=== PATIENT | female | born 1955 | race Caucasian/White ===

== ENCOUNTER → 2016-08-23 | Outpatient (CLI) | payer OTHER ==
--- NOTE | 2016-08-28 09:23 | MR ---
EXAMINATION TYPE: MR knee LT wo con DATE OF EXAM: 08/23/2016 3:34 PM COMPARISON: NONE HISTORY: Twisted Left Knee X3 Months ago TECHNIQUE: Multiplanar, multisequence imaging of the left knee is performed. FINDINGS: MEDIAL MENISCUS: Anterior and posterior horns are intact without tear. LATERAL MENISCUS: Anterior and posterior horns are intact without tear. CRUCIATE LIGAMENTS: The anterior and posterior cruciate ligaments are intact and unremarkable. COLLATERAL LIGAMENTS: The medial collateral ligament and lateral collateral ligament complex are intact and unremarkable. EXTENSOR MECHANISM: Visualized quadriceps and patellar tendons are intact. EFFUSION: No evidence for joint effusion. POPLITEAL CYST: No popliteal/mancini cyst. TRICOMPARTMENT SPACES: The tricompartment joint spaces appear within normal limits. CARTILAGE: The articular cartilage is maintained without abnormal signal or full-thickness defect. BONE MARROW SIGNAL: No focal abnormal marrow signal is appreciated: OTHER: No additional significant abnormality is appreciated. IMPRESSION: 1.
== END | disposition home or self-care (01) ==
LOC: RADMRIMAIN 15:28
PROVIDERS: ATTEND Orthopaedic Surgery
DX: S83.242A Other tear of medial meniscus, current injury, left knee, initial encounter (principal); M25.462 Effusion, left knee

== ENCOUNTER → 2016-10-04 | Outpatient (CLI) | payer OTHER ==
[2016-10-04 13:24] LABS: EKG EKG PERFORMED
[2016-10-04 13:53] LABS: Basophils # (A) 0.1 k/uL (0-0.2); Basophils % (A) 1 %; CH 30.2; CHCM 32.3; Eosinophils # (A) 0.2 k/uL (0-0.7); Eosinophils % (A) 2 %; HCT 43.7 % (34.0-46.0); HGB 14.2 gm/dL (11.4-16.0); Luc % (Auto) 3; Lymphocytes # (A) 2.7 k/uL (1.0-4.8); Lymphocytes % (A) 38 %; MCH 30.7 pg (25.0-35.0); MCHC 32.6 g/dL (31.0-37.0); MCV 94.1 fL (80.0-100.0); Mean Platelet Volume 7.1; Monocytes # (A) 0.4 k/uL (0-1.0); Monocytes % (A) 5 %; Neutrophils # (A) 3.7 k/uL (1.3-7.7); Neutrophils % (A) 51 %; RBC 4.64 m/uL (3.80-5.40); RDW 13.9 % (11.5-15.5); WBC 7.3 k/uL (3.8-10.6)
[2016-10-04 14:08] LABS: Anion Gap 13 mmol/L; Carbon Dioxide 28 mmol/L (22-30); Chloride 101 mmol/L (98-107); Potassium 4.1 mmol/L (3.5-5.1); Sodium 142 mmol/L (137-145)
== END | disposition home or self-care (01) ==
LOC: LABPAT 13:00
PROVIDERS: ATTEND Orthopaedic Surgery
DX: Z01.810 Encounter for preprocedural cardiovascular examination (principal); M23.92 Unspecified internal derangement of left knee
CPT/HCPCS: 80051; 85025; 93005

== ENCOUNTER 2016-10-09 08:42 | Day surgery (SDC) | payer OTHER ==
[2016-10-01 18:02] VITALS: BMI 34.0
--- NOTE | 2016-10-09 08:04 | P.HPOR ---
History of Present Illness H&P Date: 10/09/16 Chief Complaint: Left knee pain 61-year-old patient seen with progressive left knee pain. After having treatment options discussed, she elected to proceed with left knee arthroscopy. Past Medical History Past Medical History: Fibromyalgia, Hyperlipidemia, Osteoarthritis (OA), Thyroid Disorder Additional Past Medical History / Comment(s): EDEMA, CHRONIC BACK PAIN History of Any Multi-Drug Resistant Organisms: None Reported Past Surgical History: Bowel Resection Additional Past Surgical History / Comment(s): RADIO FREQUENCY FOR BACK PAIN Past Anesthesia/Blood Transfusion Reactions: No Reported Reaction Smoking Status: Never smoker - Past Family History Mother Family Medical History: Cancer Additional Family Medical History / Comment(s): LEUKEMIA Medications and Allergies Home Medications Medication Instructions Recorded Confirmed Type Atorvastatin [Lipitor] 10 mg PO DAILY 10/01/16 10/01/16 History Cyclobenzaprine [Flexeril] 10 mg PO DAILY PRN 10/01/16 10/01/16 History DULoxetine HCL [Cymbalta] 60 mg PO DAILY 10/01/16 10/01/16 History Hydrochlorothiazide 25 mg PO QAM 10/01/16 10/01/16 History Levothyroxine Sodium [Synthroid] 100 mcg PO DAILY 10/01/16 10/01/16 History Lisdexamfetamine Dimesylate 70 mg PO QAM 10/01/16 10/01/16 History [Vyvanse] Tramadol Er 1 tab PO DIRECTED PRN 10/01/16 History buPROPion XL [Wellbutrin Xl] 300 mg PO DAILY 10/01/16 10/01/16 History Allergies Allergy/AdvReac Type Severity Reaction Status Date / Time No Known Allergies Allergy Verified 10/01/16 17:43 Physical Examination Osteopathic Statement: *. No significant issues noted on an osteopathic structural exam other than those noted in the History and Physical/Consult. - Knee left Tenderness with palpation: medial Pain: with flexion ROM: extension: normal ROM: flexion: 120 degrees Strength: extension: 4/5 Strength: flexion: 5/5 Meniscal tests: medial meniscal tests: positive, lateral meniscal tests: negative, medial joint line pain: positive, lateral joint line pain: positive Results X-ray left knee: Mild medial and moderate lateral compartment osteoarthritis MRI left knee: Medial meniscal tear Assessment and Plan Plan: Assessment: Internal derangement left knee with medial meniscal tear Plan: Arthroscopy left knee with partial meniscectomy and debridement Time with Patient: Less than 30
[~2016-10-09 08:42] MED LIST: DEXAMETHASONE SOD PHOSPHATE 10 MG/ML 1 ML VIAL IV ONE; HYDROmorphone 1 MG/ML 1 ML SYRINGE IVP PRN; LACTATED RINGERS 1,000 ML IV SCH; LIDOCAINE 1% 20 ML VIAL (10MG/ML) FOR IV START INTRADERMA PRN; ONDANSETRON 4 MG/2 ML VIAL IVP ONE; SCOPOLAMINE 1.5MG/72HR PATCH TRANSDERM ONE
[2016-10-09] MEDS: ceFAZolin 2 GM in SODIUM CHLORIDE 0.9% 100 ML IVPB ONE ×2 (10:28→10:40)
[2016-10-09] MEDS ORDERED: GLYCOPYRROLATE 0.2 MG/ML 2 ML VIAL ONE (10:28)
[2016-10-09] MEDS ORDERED: MIDAZOLAM 2 MG/2 ML VIAL ONE (10:28)
[2016-10-09] MEDS ORDERED: LIDOCAINE 1% INJ 10MG/ML (20 ML MDV) ONE (10:28)
[2016-10-09] MEDS ORDERED: HYDROmorphone (PF) 1 MG/ML ONE (10:28)
[2016-10-09] MEDS ORDERED: fentaNYL (PF) 50 MCG/ML 2 ML AMP ONE (10:28)
[2016-10-09] MEDS ORDERED: KETAMINE 10 MG/ML 20 ML VIAL ONE (10:28)
[2016-10-09] MEDS ORDERED: PROPOFOL 10 MG/ML 20 ML VIAL IV ONE (10:28)
[2016-10-09] MEDS ORDERED: BUPIVACAINE (PF) 0.25% 30 ML VIAL SQ ONE ×2 (10:52→11:17)
[2016-10-09 11:34] VITALS: TEMP 97.4
[2016-10-09] MEDS ORDERED: KETOROLAC 30 MG/ML 1 ML VIAL IVP ONE (11:35)
--- NOTE | 2016-10-09 11:35 | P.OP ---
Date of Procedure: 10/09/16 Preoperative Diagnosis: Internal derangement left knee Postoperative Diagnosis: 1. Tear medial and lateral meniscus left knee 2. Grade 3 chondromalacia medial femoral condyle left knee 3. Grade 2/3 chondromalacia lateral femoral condyle left knee 4. Grade 3/4 chondromalacia patellofemoral joint left knee 5. Reactive synovitis medial, lateral and suprapatellar compartments left knee Procedure(s) Performed: 1. Arthroscopic partial medial and lateral meniscectomy left knee 2. Arthroscopic chondroplasty medial femoral condyle left knee 3. Arthroscopic chondroplasty lateral femoral condyle left knee 4. Arthroscopic chondroplasty patellofemoral joint left knee 5. Arthroscopic partial synovectomy medial, lateral and super patellar compartments left knee Implants: Anesthesia: JSA, local Surgeon: Bharathi Child Estimated Blood Loss (ml): 20 Pathology: none sent Condition: stable Disposition: PACU Indications for Procedure: 61-year-old patient seen with progressive left knee pain. After having treatment options discussed, she elected to proceed with arthroscopy. Operative Findings: See description of procedure Description of Procedure: Patient was taken to the operative suite. Patient underwent a general anesthetic by the department of anesthesia. Patient was given preoperative antibiotics. The left lower extremity was placed in a well-padded arthroscopic leg virgen. The left leg was prepped and draped in the normal sterile orthopedic fashion. A lateral parapatellar and suprapatellar incision was made. Trochars were inserted. Arthroscopy was initiated. Suprapatellar pouch revealed thick reactive synovitis. The patellofemoral joint appeared to articulate congruently. There were grade 3, she changes of the patella and grade 4 chondramalacia changes of the femoral sulcus with areas of bone exposure. The scope was guided into the medial gutter. No loose bodies or plica was identified. The scope was then guided into the medial compartment. A medial parapatellar incision was made. Trocar inserted followed by probe. There was a complex tear involving the posterior horn medial meniscus extending just into the midbody. There were grade 3 chondromalacia changes of the medial femoral condyle with some osteochondral tears present and grade 2 chondromalacia changes of the tibial plateau. There was reactive synovitis anteriorly. I performed a partial medial meniscectomy getting down to stable tissue. I performed a chondroplasty medial femoral condyle down to stable tissue and partial synovectomy. No loose bodies. Scope and probe were then guided into the intercondylar notch. Cruciates were identified, probed and found to be stable. The scope and probe were then guided into lateral compartment. There was a radial tear in the midbody posterior horn of the lateral meniscus. There were grade 3 chondromalacia changes lateral femoral condyle with osteochondral tears. There was reactive synovitis anteriorly. I performed a partial lateral meniscectomy down to stable tissue. I performed a chondroplasty lateral femoral condyle down to stable tissue. A partial synovectomy was performed. The residual meniscus was stable.. The scope was in guided back into the suprapatellar compartment. I introduced a motorized shaver into the super patellar compartment. I performed a chondroplasty the patella and femoral sulcus getting down to stable osteochondral tissue. We again noted an area of grade 4 chondromalacia in the central femoral sulcus but stable peripheral osteochondral tissue. I debrided some piecemeal fragments of meniscus and performed a partial synovectomy. The shaver was removed. Instruments were now removed from the joint. The joint was infiltrated with .25 % Marcaine. Steri-Strips were applied to the portal sites. Sterile dressings were applied. The patient was placed into a SOSA hose. No tourniquet was utilized. The patient was awakened, transferred to a bed and taken to recovery stable satisfactory condition.
[2016-10-09 13:44] VITALS: RESP 16
[2016-10-09] MEDS ORDERED: HYDROcodone/APAP 5-325MG 1 EACH TAB PO ONE (13:49)
[2016-10-09 14:07] VITALS: BP 119/76; PULSE 91
== END 2016-10-09 14:19 | disposition home or self-care (01) ==
LOC: OR 08:42
PROVIDERS: ATTEND Orthopaedic Surgery
DX: M23.322 Other meniscus derangements, posterior horn of medial meniscus, left knee (principal); M23.352 Other meniscus derangements, posterior horn of lateral meniscus, left knee; M94.262 Chondromalacia, left knee; M65.862 Other synovitis and tenosynovitis, left lower leg; M17.12 Unilateral primary osteoarthritis, left knee; R94.31 Abnormal electrocardiogram [ECG] [EKG]; M79.7 Fibromyalgia; E78.5 Hyperlipidemia, unspecified; E07.9 Disorder of thyroid, unspecified; M54.9 Dorsalgia, unspecified; G89.29 Other chronic pain; I10 Essential (primary) hypertension; Z79.899 Other long term (current) drug therapy
CPT/HCPCS: 29880; J2250; J1100; J0690; J2405; J2001; J3010; J1885; J1170; J2704

== ENCOUNTER → 2020-02-09 | Outpatient (CLI) | payer BC ==
[2020-02-09 10:49] LABS: Basophils % (A) 1 %; Eosinophils # (A) 0.2 k/uL (0-0.7); Eosinophils % (A) 3 %; HCT 40.4 % (34.0-46.0); Lymphocytes # (A) 2.1 k/uL (1.0-4.8); Lymphocytes % (A) 28 %; MCHC 32.1 g/dL (31.0-37.0); MCV 90.3 fL (80.0-100.0); Mean Platelet Volume 6.6; Monocytes # (A) 0.4 k/uL (0-1.0); Monocytes % (A) 5 %; Neutrophils # (A) 4.6 k/uL (1.3-7.7); Neutrophils % (A) 63 %; Platelet Count 281 k/uL (150-450); RBC 4.47 m/uL (3.80-5.40); RDW 13.8 % (11.5-15.5); WBC 7.4 k/uL (3.8-10.6)
[2020-02-09 10:52] LABS: Appearance,Urine Clear (Clear); Bilirubin,Urine Negative (Negative); Blood,Urine Negative (Negative); Color,Urine Yellow; Glucose,Urine (UA) Negative (Negative); Ketones,Urine Negative (Negative); Leukocyte Esterase,Urine Trace (Negative); Mucus,Urine Rare /hpf; Nitrite,Urine Negative (Negative); PH, Urine 7.5 (5.0-8.0); Protein,Urine Negative (Negative); Specific Gravity,Urine 1.018 (1.001-1.035); Squamous Epithelial Cell,Urine <1 /hpf (0-4); Urobilinogen,Urine <2.0 mg/dL (<2.0); WBC,Urine <1 /hpf (0-5)
[2020-02-09 10:57] LABS: INR 0.9 (<1.2); Prothrombin Time 9.8 sec (9.0-12.0)
[2020-02-09 11:11] LABS: ALT 22 U/L (4-34); AST 23 U/L (14-36); African American GFR (CKD) >90 (>60 ml/min/1.73 sqM); Albumin 4.4 g/dL (3.5-5.0); Alkaline Phosphatase 95 U/L (38-126); Anion Gap 4 mmol/L; Blood Urea Nitrogen 22 mg/dL (7-17); Calcium 9.1 mg/dL (8.4-10.2); Carbon Dioxide 30 mmol/L (22-30); Chloride 103 mmol/L (98-107); Glucose 112 mg/dL (74-99); Non-African American GFR(CKD) 81 (>60 ml/min/1.73 sqM); Sodium 137 mmol/L (137-145); Total Bilirubin 0.3 mg/dL (0.2-1.3)
== END | disposition home or self-care (01) ==
LOC: LABPAT 10:06
PROVIDERS: ATTEND Orthopaedic Surgery
DX: Z01.818 Encounter for other preprocedural examination (principal); Z01.812 Encounter for preprocedural laboratory examination
CPT/HCPCS: 80053; 81001; 85025; 85610; 87070

== ENCOUNTER 2020-02-28 12:07 | Day surgery (SDC) | payer BC, OTHER ==
[2020-02-16 14:41] VITALS: BMI 35.1
--- NOTE | 2020-02-27 13:03 | HP ---
HISTORY AND PHYSICAL DATE OF SURGERY: 02/28/2020. HISTORY OF PRESENT ILLNESS: Bonnie Mcbride is a 64-year-old patient who was seen with symptomatic left knee osteoarthritis. We discussed options for treatment. She elected to proceed with left total knee arthroplasty. Consent regarding the procedure was obtained. Medical clearance was provided by Dr. Omar Rivera. PAST MEDICAL HISTORY: Hypertension, hypothyroidism, depression. PAST SURGICAL HISTORY: Colon resection, knee arthroscopy. DAILY MEDICATIONS: Atorvastatin, levothyroxine, trazodone, Vyvanase, Voltaren gel. ALLERGIES: NONE REPORTED. SOCIAL HISTORY: She denies current tobacco use. PHYSICAL EXAMINATION: Evaluation of the left knee: Range of motion is -2/3-120. Moderate effusion. Tenderness medial joint line. Crepitus medial patellofemoral compartments on range of motion. Pain with patellofemoral compression. Ligaments stable. Hip rotation without pain. Distal neurovascular exam is intact. RADIOGRAPHS: Radiographs of the left knee revealed severe osteoarthritic changes. IMPRESSION: 1. Left knee osteoarthritis. 2. Hypertension. 3. Hypothyroidism. PLAN: Left total knee arthroplasty. MMODL / IJN: [id number] /
[~2020-02-28 12:07] MED LIST changes: +ACETAMINOPHEN TAB 500 MG TAB PO PRN; -DEXAMETHASONE SOD PHOSPHATE 10 MG/ML 1 ML VIAL IV ONE; +DEXAMETHASONE SOD PHOSPHATE 4 MG/ML 1 ML VIAL IV ONE; +HYDROmorphone 0.5 MG/0.5 ML SYRINGE IVP PRN; -HYDROmorphone 1 MG/ML 1 ML SYRINGE IVP PRN; -LACTATED RINGERS 1,000 ML IV SCH; +LIDOCAINE 1% (10MG/ML) FOR IV START INTRADERMA PRN; -LIDOCAINE 1% 20 ML VIAL (10MG/ML) FOR IV START INTRADERMA PRN; +MELOXICAM 7.5 MG TAB PO PRN; +MIDAZOLAM 2 MG/2 ML VIAL IV PRN; +ROPIVACAINE/EPI/CLONIDINE/KET 50 ML SYRINGE MISCELLANE PRN; -SCOPOLAMINE 1.5MG/72HR PATCH TRANSDERM ONE; +TRANEXAMIC ACID 1,000 MG in SODIUM CHLORIDE 0.9% 100 ML IVPB PRN; +fentaNYL (PF) 50 MCG/ML 2 ML AMP IVP PRN
[2020-02-28] MEDS ORDERED: ONDANSETRON 4 MG/2 ML VIAL ONE (12:20)
[2020-02-28] MEDS: LACTATED RINGERS 1,000 ML IV SCH ×3 (12:49→18:28)
[2020-02-28] MEDS ORDERED: DEXAMETHASONE SOD PHOSPHATE 4 MG/ML 1 ML VIAL IV ONE (12:49)
[2020-02-28] MEDS ORDERED: ONDANSETRON 4 MG/2 ML VIAL IVP ONE (12:50)
[2020-02-28] MEDS ORDERED: MIDAZOLAM 2 MG/2 ML VIAL IV ONE (12:57)
[2020-02-28] MEDS ORDERED: fentaNYL (PF) 50 MCG/ML 2 ML AMP IV ONE (12:57)
--- NOTE | 2020-02-28 13:19 | P.ANPRN ---
Procedure Note - Anesthesia - Nerve Block Performed Left Adductor Canal Time Out Performed: Yes (12:57) Date of Procedure: 02/28/20 Procedure Start Time: :57 Procedure Stop Time: 13:14 Location of Patient: PreOp Indication: Acute Post-Operative Pain, Requested by Surgeon (Dr Child) Sedation Type: Sedate with meaningful contact maintained Preparation: Sterile Prep, Sterile Dressing Position: Supine Catheter: Indwelling Needle Types: Pajunk Needle Gauge: 21 Ultrasound used to visualize needle placement: Yes Ultrasound used to observe medication spread: Yes Injectate: 0.5% Ropivacaine (see comment for volume) (20cc) Blood Aspirated: No Pain Paresthesia on Injection Noted: No Resistance on Injection: Normal Image Stored and Saved: Yes Events: Uneventful and Well Tolerated
[2020-02-28] MEDS ORDERED: ROPIVACAINE 0.2%-NS ON-Q PUMP 1,090 MG, EMPTY PAIN BALL 1 EACH MISCELLANE PRN (13:30)
[2020-02-28] MEDS ORDERED: MIDAZOLAM 2 MG/2 ML VIAL ONE (13:48)
[2020-02-28] MEDS ORDERED: PROPOFOL 10 MG/ML 20 ML VIAL IV ONE (13:48)
[2020-02-28] MEDS ORDERED: TRANEXAMIC ACID 1,000 MG/10 ML VIAL ONE (13:48)
[2020-02-28] MEDS ORDERED: SODIUM CHLORIDE 0.9% 100 ML BAG ONE (13:48)
[2020-02-28] MEDS ORDERED: diphenhydrAMINE 50 MG/ML 1 ML VIAL ONE (13:48)
[2020-02-28] MEDS ORDERED: LACTATED RINGERS 1,000 ML IV ONE (15:46)
[2020-02-28] MEDS ORDERED: HYDROcodone/APAP 5-325MG 1 EACH TAB PO PRN (15:55)
[2020-02-28] MEDS ORDERED: ONDANSETRON 4 MG/2 ML VIAL IVP PRN (15:55)
[2020-02-28] MEDS ORDERED: HYDROmorphone 0.2 MG/1 ML SYRINGE IVP PRN (15:55)
[2020-02-28] MEDS ORDERED: NALOXONE 0.4 MG/ML 1 ML VIAL IV PRN (15:55)
[2020-02-28] MEDS ORDERED: HYDROmorphone 0.5 MG/0.5 ML SYRINGE IVP PRN (15:55)
[2020-02-28] MEDS ORDERED: HYDROmorphone 1 MG/ML 1 ML SYRINGE IVP PRN (15:55)
--- NOTE | 2020-02-28 15:55 | P.OP ---
Date of Procedure: 02/28/20 Preoperative Diagnosis: Left knee osteoarthritis Postoperative Diagnosis: Left knee osteoarthritis Procedure(s) Performed: Left total knee arthroplasty Implants: 1. Depuy attune size 6 narrow left cruciate retaining cemented femur 2. Depuy attune size 6 fixed bearing cemented tibial baseplate 3. Depuy attune size 6 fixed bearing cruciate retaining 8 mm polyethylene tibial insert 4. Depuy attune 38 mm all polyethylene cemented patella Anesthesia: regional (Adductor canal catheter), local, spinal Surgeon: Bharathi Child Web Consultant #1: Sergio Corral Estimated Blood Loss (ml): 55 Pathology: other (Bone) Condition: stable Disposition: PACU Indications for Procedure: 64-year-old patient seen with symptomatic left knee osteoarthritis. After treatment options were discussed, she elected to proceed with total knee a rthroplasty. Operative Findings: Description of procedure Description of Procedure: Patient was taken to the operative suite after having an adductor canal catheter placed by the department of anesthesia. Patient underwent a spinal anesthetic by the department of anesthesia. Patient was given preoperative IV intake antibiotics and TXA. A well-padded tourniquet was placed about the left lower extremity. The lower extremity was then prepped and draped in the normal sterile orthopedic fashion. The extremity was elevated, a tourniquet was in sufflated to 300. A standard anterior incision was made sharply through skin. Dissection was taken down through the subcutaneous soft tissues down to the extensor mechanism. A medial arthrotomy was performed, patella was everted and knee was flexed. There was advanced osteoarthritis noted. I introduced my distal intramedullary femoral drill. I then introduced the distal femoral cutting jig. Colin DE LA CRUZ secured the cutting jig with 2 pins. I held retractors in position while Colin DE LA CRUZ performed the distal femoral resection through the guide area we now removed her distal femoral cutting guide. We now placed our 4-in-1 femoral cutting block and positioned and it was secured with 2 pins by Colin DE LA CRUZ while I held the block in position. The distal femoral finishing was now completed. A proximal tibial cutting guide was positioned. I held the guide in the appropriate position with both hands well Colin DE LA CRUZ inserted stabilizing pins into the guide. Proximal tibial cut was made. We now placed a trial femoral component into position, along with an appropriate size tibial tray and insert. We now took the knee through range of motion and had full extension good flexion and good overall soft tissue balance noted. The patella was everted and stabilized with 2 towel clips held by Colin DE LA CRUZ while I performed a flush with patellar quad tendon utilizing a fresh sawblade. We templated the patella, appropriate drill holes were made. An appropriate trial patella was positioned, knee was taken through full range of motion with the patella tracking very nicely. The trial patella was removed. Drill holes were made through the femoral component. All trial components were removed after marking off the appropriate rotation of the tibia. Retractors were now positioned along the proximal tibia. An appropriate keel punch was made with the appropriate size tibial guide by myself on Colin DE LA CRUZ assisted by holding retractors. At this point appropriate size implants were chosen and opened. The joint was irrigated copiously with pulse lavage mechanical irrigation. The posterior capsule was infiltrated with local analgesic. The wound was irrigated with pulse lavage mechanical irrigation. We mixed antibiotic methylmethacrylate. We placed the knee into flexion. We placed multiple retractors assisted by Colin DE LA CRUZ to expose the proximal tibia. Once the methyl methacrylate was ready, the tibial component was cemented into place removing any excess methylmethacrylate form by both myself and Colin DE LA CRUZ. The femoral component was cemented into place removing the removing any excess methylmethacrylate performed by both myself and Colin DE LA CRUZ. We then inserted the appropriate size polyethylene tibial insert. We made sure that it was locked into position. We took the knee into full extension, and then back in a flexion making sure we had removed any excess methylmethacrylate. The patellar component was then cemented down and secured with clamp. Excess methylmethacrylate removed. We kept the knee in full extension, patellar clamp in position until methylmethacrylate had hardened. Once it had hardened the patellar clamp was removed. The knee was taken through full range of motion. The patella tracked nicely. There was good soft tissue balancing. The tourniquet was now released. Additional hemostasis was achieved via electrocautery. A second gram of TXA was given. The wound again was irrigated with pulse lavage mechanical irrigation. The superficial soft tissues were infiltrated local analgesic. The extensor mechanism was repaired with Vicryl. We checked the repair with range of motion and it was stable. The subcutaneous soft tissues were repaired with Vicryl in layers. The skin was approximated with pernio/Dermabond. Sterile dressings were applied followed by loose web roll and Adilson bandage. The patient was transferred to a bed, and taken to recovery in stable and satisfactory condition. Colin DE LA CRUZ assisted with this complex procedure.
--- NOTE | 2020-02-28 16:32 | XR ---
EXAMINATION TYPE: XR knee limited LT DATE OF EXAM: 02/28/2020 CLINICAL HISTORY: Left knee pain and arthritis status post total knee replacement. TECHNIQUE: Portable AP and crosstable lateral views of the left knee are obtained immediately postop eratively. COMPARISON: Outside left knee x-rays January 18, 2020 FINDINGS: Metallic hardware from total left knee arthroplasty is seen and appears satisfactory in al ignment and position. There is evidence of recent surgery with diffuse subcutaneous gas and soft tis edmundo swelling and overlying vertical skin kay noted. IMPRESSION: METALLIC HARDWARE FROM TOTAL LEFT KNEE ARTHROPLASTY IS SATISFACTORY IN ALIGNMENT.
[2020-02-28] MEDS ORDERED: HYDROmorphone 0.5 MG/0.5 ML SYRINGE IVP ONE ×2 (16:35→16:45)
[2020-02-28] MEDS: ENOXAPARIN 30 MG/0.3 ML SYRINGE SQ SCH (20:18)
[2020-02-28] MEDS ORDERED: SENNOSIDES-DOCUSATE SODIUM 1 EACH TAB PO SCH (21:00)
[2020-02-28] MEDS: HYDROcodone/APAP 7.5-325MG 1 EACH TAB PO PRN (21:06)
[2020-02-29] MEDS: LACTATED RINGERS 1,000 ML IV SCH ×2 (01:05→08:37)
[2020-02-29 03:37] VITALS: RESP 18
[2020-02-29] MEDS: HYDROcodone/APAP 7.5-325MG 1 EACH TAB PO PRN ×2 (03:57→09:07)
[2020-02-29] MEDS ORDERED: LORazepam 1 MG TAB PO PRN (05:25)
[2020-02-29] MEDS ORDERED: LEVOTHYROXINE 100 MCG TAB PO SCH (06:30)
[2020-02-29 07:03] LABS: Basophils % (A) 0 %; Eosinophils % (A) 0 %; HCT 34.1 % (34.0-46.0); HGB 11.3 gm/dL (11.4-16.0); Lymphocytes # (A) 1.5 k/uL (1.0-4.8); Lymphocytes % (A) 16 %; MCH 29.9 pg (25.0-35.0); MCHC 33.1 g/dL (31.0-37.0); MCV 90.3 fL (80.0-100.0); Mean Platelet Volume 6.6; Monocytes # (A) 0.5 k/uL (0-1.0); Monocytes % (A) 6 %; Neutrophils # (A) 7.4 k/uL (1.3-7.7); Neutrophils % (A) 77 %; Platelet Count 207 k/uL (150-450); RBC 3.77 m/uL (3.80-5.40); WBC 9.6 k/uL (3.8-10.6)
[2020-02-29 07:35] VITALS: BP 105/69; PULSE 89; TEMP 98.2
--- NOTE | 2020-02-29 07:57 | P.CONS ---
History of Present Illness - Reason for Consult Consult date: 02/28/20 Medical management Requesting physician: Bharathi Child - Chief Complaint Post left total knee arthroplasty - History of Present Illness 64-year-old female one of my office patient with multiple medical problem known to have history of hypertension, hyper lipidemia, chronic history of fibromyalgia, chronic pain syndrome along with severe bipolar disorders and ADHD who had suffered from severe arthritis of the left knee for the last 4 years with failure to conservative management has been seen orthopedic and try for the last year decided for left total knee arthroplasty which was done successfully on 02/28/2020 patient was admitted to the hospital afterward has been medically stable hemodynamically stable and pain is under control. Review of Systems CONSTITUTIONAL: Well-developed no acute respiratory distress. Mildly overweight EYES: No icterus sclerae, no conjunctivitis. EARS, NOSE, MOUTH, THROAT, and FACE: No sore throat, lymphadenopathy, carotid bruits or deformity. RESPIRATORY: No SOB cough or wheezes. CARDIOVASCULAR: No CP, Palpitation, PND, Orthopnea, or angina. GASTROINTESTINAL: No Abd pain, Nausea or vomiting, no Diarrhea or constipation, No GI Bleed, no distention or masses. GENITOURINARY: Negative for Hematuria or UTI, no kidney stones. INTEGUMENT/BREAST: Negative for any muscular injury with mild osteoarthritis.. Slight discomfort on the left knee area HEMATOLOGIC/LYMPHATIC: Negative for bleed or purpura. MUSCULOSKELTAL: Negative for Myalgia or arthralgia. NEURLOGICAL: No LOC, Sz or syncope, blurred vision dizziness or abnormality.. BEHAVIORAL/PSYCH: Negative. ENDOCRINE: Negative. Social history: Patient does not smoke, drinks alcohol socially, she is and lives with her , used to work in management and healthcare. Does not use any CPAP or BiPAP no updraft treatment. Family history: Her mother from CLL in her late 80, her father from chronic anemia most likely colon cancer in his late 80, patient has brother who is living and well with history of hypertension, patient does not have any children. Past Medical History Past Medical History: Fibromyalgia, Hyperlipidemia, Osteoarthritis (OA), Thyroid Disorder Additional Past Medical History / Comment(s): EDEMA, CHRONIC PAIN. History of Any Multi-Drug Resistant Organisms: None Reported Past Surgical History: Bowel Resection Additional Past Surgical History / Comment(s): RADIO FREQUENCY FOR BACK PAIN, Total Left Knee february 2019. Past Anesthesia/Blood Transfusion Reactions: No Reported Reaction Past Psychological History: ADD/ADHD, Anxiety, Depression Smoking Status: Never smoker Past Alcohol Use History: Occasional Past Drug Use History: None Reported - Past Family History Mother Family Medical History: Cancer Additional Family Medical History / Comment(s): LEUKEMIA. Medications and Allergies Home Medications Medication Instructions Recorded Confirmed Type Atorvastatin [Lipitor] 10 mg PO DAILY 10/01/16 02/28/20 History Cyclobenzaprine [Flexeril] 10 mg PO DAILY PRN 10/01/16 02/28/20 History DULoxetine HCL [Cymbalta] 60 mg PO HS 10/01/16 02/28/20 History Levothyroxine Sodium [Synthroid] 100 mcg PO QAM 10/01/16 02/28/20 History Lisdexamfetamine Dimesylate 70 mg PO QAM 10/01/16 02/28/20 History [Vyvanse] hydroCHLOROthiazide 25 mg PO QAM 10/01/16 02/28/20 History LORazepam [Ativan] 1 mg PO QID PRN 02/16/20 02/28/20 History Perphenazine [Trilafon] 12 mg PO HS 02/16/20 02/28/20 History Triamterene/Hydrochlorothiazid 1 each PO QAM 02/16/20 02/28/20 History [Triamterene-Hctz 37.5-25 mg Tb] traZODone HCL 600 mg PO HS 02/16/20 02/28/20 History Allergies Allergy/AdvReac Type Severity Reaction Status Date / Time No Known Allergies Allergy Verified 02/28/20 12:24 Physical Exam Vitals: Vital Signs Temp Pulse Resp BP Pulse Ox 02/29/20 02:15 98.0 F 72 18 91/57 93 L 02/28/20 20:34 81 113/75 92 L 02/28/20 20:19 80 114/75 93 L 02/28/20 20:04 97.7 F 81 119/76 92 L 02/28/20 19:49 76 120/80 93 L 02/28/20 19:34 73 77/53 93 L 02/28/20 19:20 69 116/77 95 02/28/20 19:04 67 127/83 93 L 02/28/20 18:49 73 121/83 95 02/28/20 18:34 67 125/83 92 L 02/28/20 17:30 70 16 132/71 95 02/28/20 17:15 72 18 120/73 97 02/28/20 17:00 70 16 126/77 96 02/28/20 16:45 74 16 132/76 95 02/28/20 16:30 78 16 132/78 95 02/28/20 16:18 98.6 F 96 14 129/70 98 02/28/20 13:11 75 16 118/60 96 02/28/20 12:28 97.9 F 88 16 136/80 94 L Intake and Output 02/28/20 02/28/20 02/29/20 14:59 22:59 06:59 Intake Total 1050 150 500 Output Total 55 Balance 1050 95 500 Intake: IV 1050 150 Oral 500 Output: Estimated Blood Loss 55 Other: Voiding Method Toilet # Voids 1 Weight 110.6 kg 110.6 kg General Appearance: Alert, cooperative, no distress, appears stated age. Mildly overweight Neck HEENT: Supple, no lymphadenopathy, no thyroid enlargement, no carotid bruits. Lungs: Clear to auscultation without crackles or wheezes no rhonchi, no deformity. Chest Wall: Chest wall normal expansion with deep inspiration no tenderness and no deformity was found on exam, no costochondral pain or discomfort. Heart: Regular rate and rhythm, S1, S2 normal, no murmur, rub or gallop. Back: Symmetric, no curvature, ROM normal, no CVA tenderness. Abdomen: Soft, non-tender, bowel sounds active all four quadrants, no masses, no organomegaly. Extremities: Extremities normal, atraumatic, no cyanosis or edema. Incision looks fine with no hematoma or bleeding. Pulses: 2+ and symmetric. Skin: Skin color, texture, tugor normal, no rashes or lesions. Neurologic: Alert oriented x3 cranial nerves II through XII intact, no motor deficit, no abnormal balance or gait. Results CBC & Chem 7: 02/29/20 06:36 Assessment and Plan Assessment: 1 status post left total knee arthroplasty: Resume home meds, continue GI/DVT/pulmonary prophylaxis. Continue pain management watch patient hemodynamic status carefully. 2 hypertension: Has been doing 1 with Dyazide only. 3 hypothyroidism: Continue patient on levothyroxine 100 g daily. 4 chronic depression and bipolar disorders: Has been seen psychiatrist at [facility] and medication management has been doing very well from trazodone, lorazepam, Cymbalta. 5 hyperlipidemia: Remain on Lipitor 10 mg a day. 6 chronic history of fibromyalgia: Has been doing much better with pain management and muscle relaxer had dry multi treatment medication was more successful with product like Lyrica along with smaller dose of hydrocodone in the past 7 DVT prophylaxis: Patient was on Lovenox might be going home on Xarelto 10 mg a day for total of 2 weeks. 8 GI prophylaxis: The patient on Pepcid 20 mg daily. 9 pain management: Continue patient on hydrocodone beside the pain management system post surgery. Dr. Child thank you much for the consult for can be any further help to please let me know.
[2020-02-29] MEDS: ENOXAPARIN 30 MG/0.3 ML SYRINGE SQ SCH (08:37)
[2020-02-29] MEDS ORDERED: CYCLOBENZAPRINE 10 MG TAB PO PRN (09:00)
[2020-02-29] MEDS ORDERED: ATORVASTATIN 10 MG TAB PO SCH (09:00)
[2020-02-29] MEDS ORDERED: NON FORMULARY DRUG (Lisdexamfetamine Dimesylate [Vyvanse] 70 MG Capsule) PO SCH (09:00)
[2020-02-29] MEDS ORDERED: TRIAMTERENE-HCTZ 37.5-25MG 1 EACH TAB PO SCH (09:00)
--- NOTE | 2020-02-29 09:53 | P.PN ---
Progress Note - Text The patient is status post left adductor canal catheter placement. The catheter was placed for postoperative pain control, status post total left knee arthroplasty. Ropivacaine 0.2% is infusing at 8 mLs per hour. The patient has no complaints of left lower extremity numbness or weakness. Patient's VAS score is 1-2-10. Assessment: Patient's adductor canal catheter is in place and working appropriately. Plan: continue infusion and adjust it as needed.
--- NOTE | 2020-02-29 10:20 | P.PN ---
Subjective Progress Note Date: 02/29/20 HISTORY OF PRESENT ILLNESS 64-year-old female one of my office patient with multiple medical problem known to have history of hypertension, hyper lipidemia, chronic history of fibro myalgia, chronic pain syndrome along with severe bipolar disorders and ADHD who had suffered from severe arthritis of the left knee for the last 4 years with failure to conservative management has been seen orthopedic and try for the last year decided for left total knee arthroplasty which was done successfully on 02/28/2020 patient was admitted to the hospital afterward has been medically stable hemodynamically stable and pain is under control. 02/28: Patient has Q pump in place. Her pain is currently well controlled. She has been up to the bathroom and will be working with physical therapy. We will plan to send a prescription for Xarelto for DVT prophylaxis if okay with orthopedics. Hemoglobin 11.3. Patient has been afebrile, heart rate 89, blood pressure 105/69, pulse ox 94% on room air. Patient is cleared by medicine for discharge home. Hydrochlorothiazide will be on hold until patient follows up in the office. Patient is also on Maxzide with parameters. REVIEW OF SYSTEMS CONSTITUTIONAL: Well-developed no acute respiratory distress. Mildly overweight. No fevers. No chills. EYES: No icterus sclerae, no conjunctivitis. EARS, NOSE, MOUTH, THROAT, and FACE: No sore throat, lymphadenopathy, carotid bruits or deformity. RESPIRATORY: No SOB cough or wheezes. CARDIOVASCULAR: No CP, Palpitation, PND, Orthopnea, or angina. GASTROINTESTINAL: No Abd pain, Nausea or vomiting, no Diarrhea or constipation, No GI Bleed, no distention or masses. GENITOURINARY: Negative for Hematuria or UTI, no kidney stones. INTEGUMENT/BREAST: Negative for any muscular injury with mild osteoarthritis.. Slight discomfort on the left knee area HEMATOLOGIC/LYMPHATIC: Negative for bleed or purpura. MUSCULOSKELTAL: Negative for Myalgia or arthralgia. NEURLOGICAL: No LOC, Sz or syncope, blurred vision dizziness or abnormality.. BEHAVIORAL/PSYCH: Negative. ENDOCRINE: Negative. PHYSICAL EXAMINATION General Appearance: Alert, cooperative, no distress, appears stated age. Mildly overweight Neck HEENT: Supple, no lymphadenopathy, no thyroid enlargement, no carotid bruits. Lungs: Clear to auscultation without crackles or wheezes no rhonchi, no deformity. Chest Wall: Chest wall normal expansion with deep inspiration no tenderness and no deformity was found on exam, no costochondral pain or discomfort. Heart: Regular rate and rhythm, S1, S2 normal, no murmur, rub or gallop. Back: Symmetric, no curvature, ROM normal, no CVA tenderness. Abdomen: Soft, non-tender, bowel sounds active all four quadrants, no masses, no organomegaly. Extremities: Extremities normal, atraumatic, no cyanosis or edema. Incision looks fine with no hematoma or bleeding. Pulses: 2+ and symmetric. Skin: Skin color, texture, tugor normal, no rashes or lesions. Neurologic: Alert oriented x3 cranial nerves II through XII intact, no motor deficit, no abnormal balance or gait. ASSESSMENT AND PLAN 1 status post left total knee arthroplasty: Resume home meds, continue GI/DVT/pulmonary prophylaxis. Continue pain management watch patient hemodynamic status carefully. 2 hypertension: Has been doing 1 with Dyazide only. Hold hydrochlorothiazide at home. 3 hypothyroidism: Continue patient on levothyroxine 100 g daily. 4 chronic depression and bipolar disorders: Has been seen psychiatrist at [facility] and medication management has been doing very well from trazodone, lorazepam, Cymbalta. 5 hyperlipidemia: Remain on Lipitor 10 mg a day. 6 chronic history of fibromyalgia: Has been doing much better with pain management and muscle relaxer had multi treatment medication was more successful with product like Lyrica along with smaller dose of hydrocodone in the past 7 DVT prophylaxis: Patient was on Lovenox might be going home on Xarelto 10 mg a day for total of 2 weeks. 8 GI prophylaxis: The patient on Pepcid 20 mg daily. 9 pain management: Continue patient on hydrocodone beside the pain management system post surgery. DISCHARGE PLAN Home with [facility] today. Impression and plan of care have been directed as dictated by the signing physician. Ale Kim nurse practitioner acting as scribe for signing physician. Objective - Vital Signs Vital signs: Vital Signs Temp 98.2 F 02/29/20 07:34 Pulse 89 02/29/20 07:34 Resp 18 02/29/20 07:34 BP 105/69 02/29/20 07:34 Pulse Ox 94 L 02/29/20 07:34 Intake & Output 02/28/20 02/29/20 02/29/20 18:59 06:59 18:59 Intake Total 1200 500 Output Total 55 Balance 1145 500 Weight 110.6 kg Intake: IV 1200 Oral 500 Output: Estimated Blood Loss 55 Other: Voiding Method Toilet # Voids 1 - Labs CBC & Chem 7: 02/29/20 06:36 Labs: Abnormal Lab Results - Last 24 Hours (Table) 02/29/20 Range/Units 06:36 RBC 3.77 L (3.80-5.40) m/uL Hgb 11.3 L (11.4-16.0) gm/dL
--- NOTE | 2020-02-29 10:34 | P.PN ---
Subjective Progress Note Date: 02/29/20 Principal diagnosis: Status post left total knee arthroplasty Patient is examined today bedside, she is resting comfortably. Her pain is well-controlled with current medication. Patient did very well with physical therapy. She currently denies any headaches, lightheadedness, chest pain, shortness of breath, fever or chills, nausea or vomiting. Objective - Vital Signs Vital signs: Vital Signs Temp 98.2 F 02/29/20 07:34 Pulse 89 02/29/20 07:34 Resp 18 02/29/20 07:34 BP 105/69 02/29/20 07:34 Pulse Ox 94 L 02/29/20 07:34 Intake & Output 02/28/20 02/29/20 02/29/20 18:59 06:59 18:59 Intake Total 1200 500 Output Total 55 Balance 1145 500 Weight 110.6 kg Intake: IV 1200 Oral 500 Output: Estimated Blood Loss 55 Other: Voiding Method Toilet # Voids 1 - Exam Left lower extremity: Incision is clean, dry, and intact. The foam dressing is in good condition. There is minimal soft tissue swelling and ecchymosis surrounding the medial and lateral aspects of the incision. Calf is soft, no tenderness with palpation. Plantar flexion, dorsiflexion, EHL, FHL are intact. Sensory exam to light touch throughout the extremity is intact, dorsal pedis pulses 2+. - Labs CBC & Chem 7: 02/29/20 06:36 Labs: Abnormal Lab Results - Last 24 Hours (Table) 02/29/20 Range/Units 06:36 RBC 3.77 L (3.80-5.40) m/uL Hgb 11.3 L (11.4-16.0) gm/dL Assessment and Plan Assessment: Status post left total knee arthroplasty Plan: Pain control, plan for discharge home on [place] 7.5 mg/325 mg DVT prophylaxis, internal medicine as prescribed Xarelto 10 mg, she'll utilize for 2 weeks Wound care instructions were discussed, icing and elevating techniques discussed Home health care after discharge Medical recommendations Plan for discharge home today Time with Patient: Less than 30
--- NOTE | 2020-02-29 10:36 | P.DS ---
Providers Date of admission: 02/28/2020 Expected date of discharge: 02/29/20 Attending physician: Bharathi Child Consults: 02/28/20 15:55 Consult Physician Routine Consulting Provider: Omar Rivera Reason/Comments: Medical management Do you want consulting provider notified?: Yes Primary care physician: Omar Rivera Hospital Course: Date of admission: 02/28/2020 Date of discharge: 02/29/2020 Admission diagnosis: Status post left total knee arthroplasty Discharge diagnosis: Same Attending physician: Dr. Child Surgical procedures: Left total knee arthroplasty Brief history: Patient is a 64-year-old female with a history of regressive primary left knee osteoarthritis. At this point patient has failed conservative treatment measures and has opted to proceed with a elective left total knee arthroplasty. Hospital course: Details of patient's surgery can be found in operative report. Patient tolerated the procedure well and was subsequently transported to orthopedic floor. Patient's orthopeidc and medical care was provided daily. Patient had daily laboratory tests performed for evaluation of overall blood counts. Patient had daily physical therapy to include strengthening range of motion as well as education with walker ambulation. Patient was treated with Lovenox for their postoperative DVT prophylaxis during their inpatient stay. Patient was noted to have a relatively uneventful postoperative course. Patient reported satisfactory pain control with oral pain medications by postoperative day 0. Patient showed satisfactory progress with physical therapy. Patient moved steadily through the program and had no difficulty meeting the goals by postoperative day 1. Given patient's otherwise satisfactory course and having met physical therapy goals, plan is to discharge patient home on postoperative day 1. Discharge condition/disposition: Patient will be discharged home in stable condition. Discharge medications: Instructions are given on resumption of patient's normal daily medications per primary care recommendation, in addition patient will be prescribed Machias 7.5 mg/325 mg, Xarelto 10 mg. Discharge instructions: 1. Wound care and infection precautions, keep incision dry and covered while showering, no lotions, creams, moisturizers. No soaking, tubs, pools, hottubs. Do not scrub over the incision. Okay to remove foam dressing on 03/06/2020, after removal okay to shower over incision 2. Weight-bear as tolerated with walker / cane until follow-up. 3. Ice and elevate when necessary. Do not exceed 20 minutes per hour with ice pack. 4. Utilize compression sleeve until seen at first follow up appointment. 5. Visiting nursing care. 6. Home physical therapy including home CPM. 7. Pain meds and anticoagulants per prescription. 8. Pain medication has potential to cause constipation. Increase oral fluid and fiber intake. Contact primary care provider if you have not had a bowel movement within 48 hours after discharge 9. No anti-inflammatory medication until discussed at first post operative visit, this including Motrin, Aleve, Mobic, Diclofenac 10. Follow up in office at 2 weeks postop with Colin Corral PA-C 11. Follow up with your primary care doctor 7-10 days after discharge. 12. Contact [facility] with any questions, . Procedures: Left total knee arthroplasty Patient Condition at Discharge: Good Plan - Discharge Summary Discharge Rx Participant: Yes New Discharge Prescriptions: New Rivaroxaban [Xarelto] 10 mg PO DAILY #30 tab HYDROcodone/APAP 7.5-325MG [Machias 7.5] 1 - 2 each PO Q6HR PRN #42 tab PRN Reason: Pain Continue Lisdexamfetamine Dimesylate [Vyvanse] 70 mg PO QAM Levothyroxine Sodium [Synthroid] 100 mcg PO QAM DULoxetine HCL [Cymbalta] 60 mg PO HS Cyclobenzaprine [Flexeril] 10 mg PO DAILY PRN PRN Reason: Pain Atorvastatin [Lipitor] 10 mg PO DAILY Perphenazine [Trilafon] 12 mg PO HS LORazepam [Ativan] 1 mg PO QID PRN PRN Reason: Anxiety traZODone HCL 600 mg PO HS Triamterene/Hydrochlorothiazid [Triamterene-Hctz 37.5-25 mg Tb] 1 each PO QAM #0 Discontinued hydroCHLOROthiazide 25 mg PO QAM Discharge Medication List Atorvastatin [Lipitor] 10 mg PO DAILY 10/01/16 [History] Cyclobenzaprine [Flexeril] 10 mg PO DAILY PRN 10/01/16 [History] DULoxetine HCL [Cymbalta] 60 mg PO HS 10/01/16 [History] Levothyroxine Sodium [Synthroid] 100 mcg PO QAM 10/01/16 [History] Lisdexamfetamine Dimesylate [Vyvanse] 70 mg PO QAM 10/01/16 [History] LORazepam [Ativan] 1 mg PO QID PRN 02/16/20 [History] Perphenazine [Trilafon] 12 mg PO HS 02/16/20 [History] traZODone HCL 600 mg PO HS 02/16/20 [History] HYDROcodone/APAP 7.5-325MG [Machias 7.5] 1 - 2 each PO Q6HR PRN #42 tab 02/29/20 [Rx] Rivaroxaban [Xarelto] 10 mg PO DAILY #30 tab 02/29/20 [Rx] Triamterene/Hydrochlorothiazid [Triamterene-Hctz 37.5-25 mg Tb] 1 each PO QAM #0 02/29/20 [Rx] Follow up Appointment(s)/Referral(s): [facility], [NON-STAFF] - As Needed [facility] [NON-STAFF] - As Needed (Continuous Passive Motion knee machine.) Omar Rivera MD [Primary Care Provider] - 1 Week Sergio Corral PAC [PHYSICIAN PRODUCTION CONTROL COORDINATOR] - 03/15/20 2:10 pm Activity/Diet/Wound Care/Special Instructions: Orthopedic Discharge Instructions: 1. Wound care and infection precautions, keep incision dry and covered while showering, no lotions, creams, moisturizers. No soaking, pools, hot tubs. Do not scrub over incision. Okay to remove foam dressing on 03/06/2020, okay to shower over incision after removal of bandage 2. Weight-bear as tolerated with walker / cane until follow-up. 3. Ice and elevate when necessary. Do not exceed 20 minutes per hour with ice pack. 4. Utilize compression sleeve until seen at first follow up appointment. 5. Pain meds and anticoagulants per prescription. 6. Pain medication has potential to cause constipation. Increase oral fluid and fiber intake. Contact primary care provider if you have not had a bowel movement within 48 hours after discharge. 7. No anti-inflammatory medication until discussed at first post operative visit, this including Motrin, Aleve, Mobic, Diclofenac. 8. Follow up in office at 2 weeks postop with Colin Corral PA-C 9. Follow up with your primary care doctor 7-10 days after discharge. 10. Contact [facility] with any questions, . Discharge Disposition: HOME WITH HOME HEALTH SERVICES
[2020-02-29] MEDS ORDERED: traZODone HCL 100 MG TAB PO SCH (21:00)
[2020-02-29] MEDS ORDERED: DULoxetine HCL 60 MG CAPSULE.DR PO SCH (21:00)
== END 2020-02-29 12:57 | disposition home health service (06) ==
LOC: OR 12:07 → 4SSUR 16:18 → OR 02-29 12:57
PROVIDERS: ATTEND Orthopaedic Surgery
DX: M17.12 Unilateral primary osteoarthritis, left knee (principal); I10 Essential (primary) hypertension; E78.5 Hyperlipidemia, unspecified; G89.4 Chronic pain syndrome; J32.9 Chronic sinusitis, unspecified; K56.609 Unspecified intestinal obstruction, unspecified as to partial versus complete obstruction; L73.8 Other specified follicular disorders; E66.9 Obesity, unspecified; G47.419 Narcolepsy without cataplexy; G47.09 Other insomnia; E03.9 Hypothyroidism, unspecified; R73.9 Hyperglycemia, unspecified; E78.00 Pure hypercholesterolemia, unspecified; R60.9 Edema, unspecified; R07.89 Other chest pain; F31.9 Bipolar disorder, unspecified; L74.4 Anhidrosis; F41.9 Anxiety disorder, unspecified; G47.00 Insomnia, unspecified; M54.9 Dorsalgia, unspecified; M79.7 Fibromyalgia; Z88.8 Allergy status to other drugs, medicaments and biological substances; Z68.36 Body mass index [BMI] 36.0-36.9, adult; Z87.59 Personal history of other complications of pregnancy, childbirth and the puerperium; Z90.49 Acquired absence of other specified parts of digestive tract; Z98.890 Other specified postprocedural states; Z98.82 Breast implant status; Z78.0 Asymptomatic menopausal state; Z79.899 Other long term (current) drug therapy; Z79.890 Hormone replacement therapy; Z79.891 Long term (current) use of opiate analgesic; Z79.1 Long term (current) use of non-steroidal anti-inflammatories (NSAID); Z80.6 Family history of leukemia; Z83.2 Family history of diseases of the blood and blood-forming organs and certain disorders involving the immune mechanism; Z82.49 Family history of ischemic heart disease and other diseases of the circulatory system
CPT/HCPCS: 27447; 97110; 97161; 64448; 76942; 85025; 88300; 73560; C1776; C1713; J2250; J1200; J1100; J0690 ×2; J2405; J3010; J1650 ×2; J2704; J1170; J2795

== ENCOUNTER → 2020-04-06 | Outpatient (CLI) | payer BC ==
[2020-04-06 10:26] LABS: Appearance,Urine Clear (Clear); Bilirubin,Urine Negative (Negative); Blood,Urine Negative (Negative); Color,Urine Light Yellow; Glucose,Urine (UA) Negative (Negative); Ketones,Urine Negative (Negative); Leukocyte Esterase,Urine Negative (Negative); Nitrite,Urine Negative (Negative); Protein,Urine Negative (Negative); Specific Gravity,Urine 1.012 (1.001-1.035); Urobilinogen,Urine <2.0 mg/dL (<2.0)
[2020-04-06 19:39] LABS: HCT 37.1 % (37.2-46.3); HGB 11.2 g/dL (12.0-15.0); MCH 28.4 pg (27.0-32.0); MCHC 30.2 g/dL (32.0-37.0); MCV 94.2 fL (80.0-97.0); Mean Platelet Volume 10.3 fL (9.5-12.2); Platelet Count 317 X 10*3/uL (140-440); RBC 3.94 X 10*6/uL (4.10-5.20); RDW 14.8 % (11.5-14.5); WBC 6.27 X 10*3/uL (4.50-10.00)
[2020-04-06 20:24] LABS: ALT 24 U/L (8-44); AST 24 U/L (13-35); African American GFR (CKD) 78.9 (60.0-200.0); Albumin/Globulin Ratio 2.61 (1.60-3.17); Alkaline Phosphatase 110 U/L (41-126); BUN/Creat Ratio 23.33 Ratio (12.00-20.00); C Reactive Protein 0.6 mg/dL (0.0-0.8); Calcium 9.6 mg/dL (8.7-10.3); Carbon Dioxide 25.1 mmol/L (21.6-31.8); Chloride 106 mmol/L (96-109); Creatine Kinase 155 U/L (26-186); Globulin 1.8 g/dL (1.6-3.3); Glucose 100 mg/dL (70-110); Magnesium 1.8 mg/dL (1.5-2.4); Potassium 4.5 mmol/L (3.5-5.5); Sodium 140 mmol/L (135-145); Total Bilirubin 0.4 mg/dL (0.2-1.2); Total Protein 6.5 g/dL (6.2-8.2)
[2020-04-06 20:58] LABS: Folate, Serum >24.0 ng/mL
[2020-04-06 21:35] LABS: Erythrocyte Sedimentation Rate 16 mm/Hr (0-30)
[2020-04-06 21:54] LABS: Hemoglobin A1C 5.2 % (4.0-6.0)
[2020-04-10 07:34] LABS: Vitamin E (Alpha Tocopherol) 1771 ug/dL (500-1800)
[2020-04-10 14:00] LABS: Vit B1(Thiamine) 53 ug/L (38-122)
[2020-04-13 01:10] LABS: Nicotinamide 17 ng/mL; Nicotinic Acid None Detected; Nicotinuric Acid None Detected
== END | disposition home or self-care (01) ==
LOC: LABWHC1 09:42
PROVIDERS: ATTEND Psychiatry & Neurology Pain Medicine
DX: G89.4 Chronic pain syndrome (principal); Z79.899 Other long term (current) drug therapy; M79.7 Fibromyalgia; M25.50 Pain in unspecified joint
CPT/HCPCS: 36415; 80053; 81003; 82306; 82550; 82607; 82746; 83036; 83519; 83735; 84207; 84425; 84446; 84590; 84591; 84597; 85027; 85652; 86140

== ENCOUNTER → 2021-05-01 | Outpatient (CLI) | payer MEDICARE, BC ==
--- NOTE | 2021-05-02 02:07 | MR ---
EXAMINATION TYPE: MR knee RT wo con DATE OF EXAM: 05/01/2021 COMPARISON: 04/01/2015 HISTORY: M25.561 Right knee pain, medial side of knee x 2 weeks Multiplanar multiecho imaging of the right knee without contrast. There is some thinning and increased signal in the anterior cruciate ligament consistent with at leas t partial tear and probably a complete tear. The posterior cruciate ligament is intact. There is irre gular vertical and horizontal increased signal in the anterior horn of the lateral meniscus. There is complex tear of the posterior horn of the lateral meniscus. There is some degenerative thinning of t he posterior horn medial meniscus with small tear along the inferior surface. The collateral ligaments are intact. There is knee joint effusion. There is spurring of the femoral a nd tibial condyles. I see no focal bone destruction. There is a 1.5 cm area of increased signal at th e base of the tibial spines on the T2 images and consistent with edema and bone bruise. IMPRESSION: There is tear of the anterior cruciate ligament which is probably a complete tear Hypertrophic osteoarthritis. Complex tears of the anterior posterior horn of the lateral meniscus. Th ere is small vertical tear and degenerative thinning of the posterior horn medial meniscus. There is also vertical tear anterior horn medial meniscus. Mild knee joint effusion. Small degenerative cyst formation and bone bruise at the base of the tibial spines.
== END | disposition home or self-care (01) ==
LOC: RADMRIMAIN 13:01
PROVIDERS: ATTEND Orthopaedic Surgery
DX: S83.241A Other tear of medial meniscus, current injury, right knee, initial encounter (principal); X58.XXXA Exposure to other specified factors, initial encounter

== ENCOUNTER → 2021-05-25 | Outpatient (CLI) | payer MEDICARE, BC ==
[2021-05-25 23:14] LABS: Anion Gap 13.2 mmol/L (10.00-18.00); Carbon Dioxide 21.4 mmol/L (20.0-27.5); Potassium 4.2 mmol/L (3.5-5.5)
[2021-05-25 23:44] LABS: Basophils # (A) 0.02 X 10*3/uL (0.00-0.10); Basophils % (A) 0.3 %; Eosinophils # (A) 0.11 X 10*3/uL (0.04-0.35); Eosinophils % (A) 1.7 %; HCT 43.2 % (37.2-46.3); HGB 13.8 g/dL (12.0-15.0); Immature Grans, Automated 0.3 %; Lymphocytes # (A) 2.23 X 10*3/uL (0.90-5.00); Lymphocytes % (A) 34.1 %; MCH 29.4 pg (27.0-32.0); MCHC 31.9 g/dL (32.0-37.0); MCV 91.9 fL (80.0-97.0); Mean Platelet Volume 10.5 fL (9.5-12.2); Monocytes # (A) 0.46 X 10*3/uL (0.20-1.00); NRBC Per 100 WBC 0 /100 WBCS (0.0-0.0); Neutrophils % (A) 56.6 %; Platelet Count 287 X 10*3/uL (140-440); RDW 13.2 % (11.5-14.5); WBC 6.54 X 10*3/uL (4.50-10.00)
== END | disposition home or self-care (01) ==
LOC: LABPAT 13:14
PROVIDERS: ATTEND Orthopaedic Surgery
DX: Z01.812 Encounter for preprocedural laboratory examination (principal); M23.91 Unspecified internal derangement of right knee
CPT/HCPCS: 80051; 85025; 93005

== ENCOUNTER 2021-06-07 11:34 | Day surgery (SDC) | payer MEDICARE, BC ==
[2021-06-05 16:04] VITALS: BMI 36.6
--- NOTE | 2021-06-06 18:53 | HP ---
HISTORY AND PHYSICAL DATE OF SURGERY: 06/07/2021 Bonnie Mcbride is a 66-year-old patient seen with progressive right knee pain. We discussed options for treatment. She elected to proceed with right knee arthroscopy. Consent was obtained. PAST MEDICAL HISTORY: Hyperlipidemia, hypertension, hypothyroidism. PAST SURGICAL HISTORY: Knee arthroscopy, total knee arthroplasty, colon resection. DAILY MEDICATIONS: Atorvastatin, levothyroxine, hydrochlorothiazide. ALLERGIES: NONE. SOCIAL HISTORY: She denies tobacco use. PHYSICAL EVALUATION OF THE RIGHT KNEE: Her range of motion is negative 2 to 125. Mild effusion. Tenderness, medial joint line. Positive medial Oneal's. Ligaments stable. Hip rotation without pain. Distal neurovascular exam intact. Radiographs of the right knee revealed moderate osteoarthritic changes. MRI right knee revealed medial and lateral meniscal tears as well as anterior cruciate ligament tear. IMPRESSION: 1. Internal derangement of right knee with medial and lateral meniscal tear. 2. Right knee ACL tear. 3. Hypertension. 4. Hyperlipidemia. 5. Hypothyroidism. PLAN: Right knee arthroscopy with partial medial/lateral meniscectomy, debridement, ACL tear. MMODL / IJN: [id number] /
[~2021-06-07 11:34] MED LIST changes: -ACETAMINOPHEN TAB 500 MG TAB PO PRN; +LACTATED RINGERS 1,000 ML IV SCH; -MELOXICAM 7.5 MG TAB PO PRN; -MIDAZOLAM 2 MG/2 ML VIAL IV PRN; -ROPIVACAINE/EPI/CLONIDINE/KET 50 ML SYRINGE MISCELLANE PRN; -TRANEXAMIC ACID 1,000 MG in SODIUM CHLORIDE 0.9% 100 ML IVPB PRN; -fentaNYL (PF) 50 MCG/ML 2 ML AMP IVP PRN
[2021-06-07] MEDS ORDERED: MIDAZOLAM 2 MG/2 ML VIAL IVP ONE (12:28)
[2021-06-07] MEDS ORDERED: MIDAZOLAM 2 MG/2 ML VIAL ONE (13:05)
[2021-06-07] MEDS ORDERED: PROPOFOL 10 MG/ML 20 ML VIAL IV ONE (13:05)
[2021-06-07] MEDS ORDERED: fentaNYL (PF) 50 MCG/ML 2 ML AMP ONE (13:05)
[2021-06-07] MEDS ORDERED: LIDOCAINE 1% INJ 10MG/ML (20 ML MDV) ONE (13:05)
[2021-06-07] MEDS ORDERED: SUCCINYLCHOLINE CHLORIDE VIAL 200 MG/10 ML VIAL IV ONE (13:05)
[2021-06-07] MEDS ORDERED: BUPIVACAINE (PF) 0.25% 30 ML VIAL INTRAARTIC ONE ×2 (13:26→13:43)
[2021-06-07 14:02] VITALS: RESP 16; TEMP 97.3
--- NOTE | 2021-06-07 14:05 | P.OP ---
Date of Procedure: 06/07/21 Preoperative Diagnosis: Internal derangement right knee Postoperative Diagnosis: 1. Tear medial and lateral meniscus right knee 2. Grade 4 chondromalacia femoral sulcus right knee 3. Reactive synovitis medial, lateral and suprapatellar compartments right knee Procedure(s) Performed: 1. Arthroscopic partial medial and lateral meniscectomy right knee 2. Arthroscopic microfracture femoral sulcus right knee 3. Arthroscopic partial synovectomy medial, lateral and suprapatellar compartments right knee Anesthesia: JSA, local Surgeon: Bharathi Child Estimated Blood Loss (ml): 8 Pathology: none sent Condition: stable Disposition: PACU Indications for Procedure: 66-year-old patient seen with progressive right knee pain. After treatment options were discussed, she elected to proceed with arthroscopy. Operative Findings: See description of procedure Description of Procedure: Patient was taken to the operative suite. Patient underwent a general anesthetic by the department of anesthesia. Patient was given preoperative antibiotics. The right lower extremity was placed in a well-padded arthroscopic leg virgen. The right leg was prepped and draped in the normal sterile orthopedic fashion. A lateral parapatellar and suprapatellar incision was made. Trochars were inserted. Arthroscopy was initiated. Suprapatellar pouch revealed diffuse thick reactive synovitis. The patellofemoral joint appeared to articulate congruently. There was grade 4 chondromalacia of the femoral sulcus and grade 3, show of the patella. There were areas of exposed bone in the femoral sulcus.. The scope was guided into the medial gutter. No loose bodies or plica were identified. The scope was then guided into the medial compartment. A medial parapatellar incision was made. Trocar inserted followed by probe. There was a complex tear involving the posterior horn and midbody medial meniscus. There were grade 2/3 chondromalacia changes of the medial femoral condyle without significant osteochondral tear. There was some thick reactive some-itis anteriorly. I performed a partial medial meniscectomy getting down to stable meniscal tissue. I performed a partial synovectomy decompressing the thick reactive some-itis. The shaver was removed. The residual meniscus was stable. There was good decompression of the synovitis. Scope and probe were then guided into the intercondylar notch. Cruciates were identified, probed and found to be stable. The scope and probe were then guided into lateral compartment. There was a radial tears involving the mid body and posterior horns the lateral meniscus. There was grade 1 chondral malacia changes of the tibial plateau without osteochondral tearing. There was some thick reactive some-itis anteriorly. I performed a partial lateral meniscectomy getting down to stable meniscal tissue. I performed a partial synovectomy compressing the reactive some-itis anteriorly. Shaver was removed. The residual meniscus was stable. There was good decompression of synovitis. The scope was in guided back into the suprapatellar compartment. I introduced a motorized shaver into the super patellar compartment. I debrided some piecemeal fragments of meniscus I encountered. I performed a partial synovectomy. Shaver was removed. There was good decompression of synovitis. I now introduced a microfracture awl and performed a microfracture to the femoral sulcus p enetrating the bone with resultant bleeding at the microfracture site. The residual surface was stable. I now took one more look around the entire knee, no residual debris. Instruments were now removed from the joint. The joint was infiltrated with .25% Marcaine. Steri-Strips were applied to the portal sites. Sterile dressings were applied. The patient was placed into a SOSA hose. No tourniquet was utilized. The patient was awakened, transferred to a bed and taken to recovery stable satisfactory condition.
[2021-06-07] MEDS ORDERED: HYDROcodone/APAP 7.5-325MG 1 EACH TAB ONE (14:59)
[2021-06-07 15:34] VITALS: BP 122/77; PULSE 66
== END 2021-06-07 16:08 | disposition home or self-care (01) ==
LOC: OR 11:34
PROVIDERS: ATTEND Orthopaedic Surgery
DX: S83.231A Complex tear of medial meniscus, current injury, right knee, initial encounter (principal); S83.281A Other tear of lateral meniscus, current injury, right knee, initial encounter; M94.261 Chondromalacia, right knee; M65.861 Other synovitis and tenosynovitis, right lower leg; E78.5 Hyperlipidemia, unspecified; I10 Essential (primary) hypertension; E03.9 Hypothyroidism, unspecified; X58.XXXA Exposure to other specified factors, initial encounter; Z90.49 Acquired absence of other specified parts of digestive tract; Z79.899 Other long term (current) drug therapy; Z79.890 Hormone replacement therapy; Z96.659 Presence of unspecified artificial knee joint
CPT/HCPCS: 29880; J2250; J0330; J1100; J0690; J2405; J2001; J3010; J2704

== ENCOUNTER → 2021-12-11 | Outpatient (CLI) | payer MEDICARE, BC ==
--- NOTE | 2021-12-11 12:09 | CT ---
CT right knee [facility] protocol HISTORY: Osteoarthritis, pain Correlation to plain film 04/17/2021 CT scan was performed through the right lower extremity for procedure planning purposes. Automated ex posure control for dose reduction. DLP 1035 mGy centimeters coronal sagittal reconstructions to the h ip knee and ankle. Osteoarthritic changes are present within the right hip. There is joint space loss and marginal spurr ing. Subchondral geode formation is present. Osteoarthritic changes are again noted within the right knee, there is tricompartmental marginal spur ring. There is a knee joint effusion. The ankle joint is intact. Calcifications present at the insertion of the Achilles tendon. impression: CT for procedure planning purposes
== END | disposition home or self-care (01) ==
LOC: RADCTMAIN 10:54
PROVIDERS: ATTEND Orthopaedic Surgery
DX: M17.11 Unilateral primary osteoarthritis, right knee (principal); M79.7 Fibromyalgia; Z68.34 Body mass index [BMI] 34.0-34.9, adult; M25.562 Pain in left knee; Z96.652 Presence of left artificial knee joint; T84.84XD Pain due to internal orthopedic prosthetic devices, implants and grafts, subsequent encounter; T84.023D Instability of internal left knee prosthesis, subsequent encounter

== ENCOUNTER → 2022-01-03 | Outpatient (CLI) | payer MEDICARE, BC ==
--- NOTE | 2022-01-03 14:04 | CT ---
EXAMINATION TYPE: CT right knee - [facility] Protocol CT DLP: 731 mGycm, Automated exposure control for dose reduction was used. DATE OF EXAM: 01/03/2022 1:52 PM COMPARISON: CT right knee 12/11/2021. CLINICAL INDICATION:Female, 66 years old with history of M25.561 PAIN IN RIGHT KNEE; [facility], TECHNIQUE: Scanning of the right knee without IV contrast. Coronal and sagittal reconstructions perfo rmed. Imaging for surgical planning purposes. Imaging included both hips and ankles as well. FINDINGS: Stool is present throughout the visualized colon with anastomosis demonstrated. No acute fracture or dislocation. Osteoarthritic changes are present within the right hip. There is joint space loss and marginal spurr ing are demonstrated. Subchondral cystic formation is again present. Osteoarthritic changes are again noted within the right knee with tricompartmental joint space narrow ing and marginal spurring. Small knee joint effusion redemonstrated and slightly decreased in size. The ankle joint is intact. Calcifications are present at the insertion of Achilles tendon. IMPRESSION: CT for procedure planning purposes.
== END | disposition home or self-care (01) ==
LOC: RADCTMAIN 13:06
PROVIDERS: ATTEND Orthopaedic Surgery
DX: M17.11 Unilateral primary osteoarthritis, right knee (principal); M79.7 Fibromyalgia; T84.023D Instability of internal left knee prosthesis, subsequent encounter; Z96.652 Presence of left artificial knee joint

== ENCOUNTER → 2022-01-30 | Outpatient (CLI) | payer MEDICARE, BC | END | disposition home or self-care (01) | LOC: LABPAT 11:42 | PROVIDERS: ATTEND Orthopaedic Surgery | DX: Z01.812 Encounter for preprocedural laboratory examination (principal) | CPT/HCPCS: 87070 ==

== ENCOUNTER 2022-02-01 09:55 | Day surgery (SDC) | payer MEDICARE, BC ==
[~2022-02-01 09:55] MED LIST changes: +ACETAMINOPHEN TAB 500 MG TAB PO PRN; +DEXAMETHASONE SOD PHOSPHATE 10 MG/ML 1 ML VIAL IV PRN; +DOCUSATE 100 MG CAP PO PRN; +FAMOTIDINE 20 MG/2 ML VIAL IVP PRN; +KETOROLAC 15 MG/ML 1 ML VIAL IVP PRN; -LACTATED RINGERS 1,000 ML IV SCH; +ONDANSETRON 4 MG/2 ML VIAL IVP PRN; +ROPIVACAINE 246.25 MG, EPINEPHrine 0.5 MG, KETOROLAC (30 mg/mL) 30 MG, cloNIDine HCL/PF... MISCELLANE PRN; +ROPIVACAINE/EPI/CLONIDINE/KET 50 ML SYRINGE MISCELLANE PRN; +TRANEXAMIC ACID IN NACL,ISO-OS 1,000 MG in SALINE 1 100ML.BAG IVPB PRN; +oxyCODONE ER 10 MG TAB.ER.12H PO PRN
[2022-02-01] MEDS ORDERED: LACTATED RINGERS 1,000 ML IV ONE ×2 (10:30→13:14)
[2022-02-01 10:38] LABS: Glucose,Whole Blood 106 mg/dL (70-110)
[2022-02-01] MEDS ORDERED: PROPOFOL 10 MG/ML 20 ML VIAL IV ONE (11:21)
[2022-02-01] MEDS ORDERED: NEOSTIGMINE 1 MG/ML 10 ML VIAL ONE (11:21)
[2022-02-01] MEDS ORDERED: ROPIVACAINE 5 MG/ML 30 ML VIAL ONE (11:21)
[2022-02-01] MEDS ORDERED: LIDOCAINE 2% INJ 20 MG/ML (2 ML VIAL) ONE (11:21)
[2022-02-01] MEDS ORDERED: fentaNYL (PF) 50 MCG/ML 2 ML AMP ONE (11:21)
[2022-02-01] MEDS ORDERED: SUCCINYLCHOLINE CHLORIDE 200 MG/10 ML VIAL IV ONE (11:21)
[2022-02-01] MEDS ORDERED: ROCURONIUM 10 MG/ML (5 ML VIAL) IV ONE (11:21)
[2022-02-01] MEDS ORDERED: GLYCOPYRROLATE 0.2 MG/ML 2 ML VIAL ONE (11:21)
[2022-02-01] MEDS ORDERED: TRANEXAMIC ACID IN NACL,ISO-OS 1,000 MG/100 ML BAG ONE (11:21)
[2022-02-01] MEDS ORDERED: DEXAMETHASONE SOD PHOSPHATE 4 MG/ML 1 ML VIAL ONE (11:21)
--- NOTE | 2022-02-01 13:44 | P.OP ---
Date of Procedure: 02/01/22 Preoperative Diagnosis: 1. Severe right knee osteoarthritis 2. BMI 35 3. Fibromyalgia 4. [place] use at baseline Postoperative Diagnosis: Same Procedure(s) Performed: Right total knee replacement Implants: 1. [place] Triathlon CR Femur Size #5 2. [place] Tri[employer]lon Era Tibial Base Size #4 3. [place] Tri[employer]lon CS poly Size #4, 9-mm 4. [place] Triathlon all poly patella, Size #32 Anesthesia: COLIN, regional Surgeon: Jose Manuel Smith [employer] Obiee Developer #1: Alejandra Guerin Estimated Blood Loss (ml): 100 IV fluids (ml): 1,200 Pathology: none sent (Routine gross and her histopathologic evaluation not indicated based on my intraoperative findings and interpretation of preoperative imaging. Findings consistent with osteoarthritis) Condition: stable Disposition: PACU Indications for Procedure: I met with the patient preoperatively in the office setting and discussed treatment of their symptomatic knee arthritis. They failed a long course of nonsurgical treatment and elected to proceed with an elective total knee replacement. I discussed the potential risks and complications at length and gave them ample time to ask questions. Risks discussed included: risks from anesthesia, superficial site surgical infection, acute and/or chronic periprosthetic joint infection, delayed wound healing, drainage, wound necrosis, instability, stiffness, stiffness requiring manipulation and/or revision surge ry, damage to local blood vessels or nerves, aseptic loosening of the implants, extensor mechanism issues including disruption, patellar maltracking, avascular necrosis etc., continued or worsened knee pain, generalized dissatisfaction with surgical outcome, need for revision surgery, an inability to regain preinjury level of function, DVT, PE, other medical complications, and possibly loss of life or limb. The patient voiced their understanding that while these are the most common complications other less common complications are possible. They provided both their verbal and written consent to go forward with surgery. Operative Findings: Severe full-thickness cartilage loss in the medial and patellofemoral compartment Description of Procedure: The patient was identified in preoperative holding and the correct operative extremity was verified and marked with a marker. I reviewed the consent form with the patient at length. All of their questions were answered. The patient was given a block by anesthesia. They were then brought back to the operating room. They were transferred onto the operating room table where a general an esthetic, preoperative antibiotics, and tranexamic acid were administered by anesthesia. A tourniquet was applied to the proximal aspect of the operative extremity. The contralateral extremity was padded under the heel and secured to the operating room table with a nonsterile blue towel and tape. The ipsilateral arm was carefully draped across the patient's chest and secured with a pillow and foam. A post was applied over the lateral aspect of the ipsilateral thigh and a bolster was placed under the ipsilateral foot. I verified that the operative extremity was stable and the knee was flexed to 90. The operative extremity was then placed in a leg virgen, nonsterile drapes were applied, and the extremity was prepped and draped sterilely in the standard sterile fashion. Prior to starting surgery timeout was performed identifying the correct patient, operative extremity, and procedure. The leg was then elevated, exsanguinated with an Esmarch bandage, and the tourniquet was inflated. An anterior midline incision was made sharply with a scalpel. Once I had dissected deep to the superficial fascial layer medial and lateral flaps were elevated. A medial parapatellar arthrotomy was created. Upon opening the knee joint there were diffuse arthritic changes in all 3 compartments. The anterior horn of the medial meniscus were sharply released and a medial release was performed around the posterior medial corner of the knee to facilitate retractor placement. The fat pad was excised with electrocautery. The patella was found to be severely arthritic and a provisional cut was made with a sagittal saw to facilitate mobilization of the extensor mechanism during the procedure. Remnants of the ACL and PCL were then excised from the notch. 4 mm pins were then placed within the incision in the medial distal femur and proximal tibia. Arrays were applied to the pins and I verified they were completely tightened. The knee was then registered with the [employer] robot and manipulations in implant position were made to balance the knee and opitmize implant position. Using the [employer] robotic saw all cuts were made in accordance with our plan. After all bony fragments had been removed the cuts were verified with the planar probe. The tibia was then subluxed forward and sized. The knee was brought into flexion and a lamina industrial hygenist was placed to allow removal of the meniscal remnants both medially and laterally as well as posterior osteophytes. Local anesthetic was then infiltrated around the joint capsule. Trial implants were then placed within the knee. Range of motion and collateral ligament tension was then evaluated. Adjustments in implant size and position were then made accordingly. Once the knee was felt to be appropriately balanced the Jd pins were removed. The patella was then recut, sized, and punched. A trial patellar button was then placed. With the trial components in place, the patella tracked midline. The femur was then drilled and the trial component removed. The trial tibial component was then appropriately rotated, pinned, and prepared for the keel. All trial components were then removed from the knee. The knee was thoroughly irrigated with pulsatile lavage. Cement was prepared via vacuum mixing in a bowl on the back table. I then hand pressurized cement into the femur and tibia and placed the implants beginning with the tibial base tray and poly liner, femoral component, and finally the patellar button. All extruded cement was removed including from the pin sites. Once the cement had hardened the knee was evaluated one final time with the final polyethylene liner in place. The knee had full extension and flexion and felt stable to varus and valgus stress throughout the arc of motion. The tourniquet was released and with the tourniquet down the patella tracked midline. All bleeders were controlled with electrocautery. The knee was then soaked for 3 minutes with a dilute Betadine soak. The knee was thoroughly irrigated using 3 L of sterile saline and pulsatile lavage. A deep drain was placed. The extensor mechanism was then reapproximated using pop off Vicryl sutures followed by a running barbed suture. The knee was then closed in layers with a 0 strata fix for the deep fascial layer, 2-0 strata fix for the superficial subcutaneous layer and Monocryl and Steri-Strips for the skin. A sterile dressing and drain sponge were applied. I verified that all instrument, sponge, and sharp counts were correct. The patient was then transferred off the operating room table, extubated, and brought to recovery having tolerated the procedure well. Alejandra Guerin PA-C was required as a skilled clinical assistant due to the complexity of the procedure for patient positioning, draping, retraction, placement of hardware, and closure of wound. PLAN: The patient can weight-bear as tolerated on the operative extremity. DVT prophylaxis with aspirin 81 mg twice a day based on preoperative risk stratification. Follow-up in the office in 2 weeks for wound check and x-rays of the knee including an AP and lateral.
[2022-02-01] MEDS ORDERED: ONDANSETRON 4 MG/2 ML VIAL IVP PRN (13:48)
[2022-02-01] MEDS ORDERED: HYDROcodone/APAP 5-325MG 1 EACH TAB PO PRN (13:48)
[2022-02-01] MEDS ORDERED: NALOXONE 0.4 MG/ML 1 ML VIAL IV PRN (13:48)
[2022-02-01] MEDS ORDERED: hydrOXYzine pamoate 25 MG CAP PO PRN (13:48)
[2022-02-01] MEDS ORDERED: HYDROmorphone 0.5 MG/0.5 ML SYRINGE IVP PRN ×2 (13:48)
[2022-02-01] MEDS ORDERED: HYDROmorphone 1 MG/ML 1 ML SYRINGE IVP PRN (13:48)
--- NOTE | 2022-02-01 14:18 | XR ---
EXAMINATION TYPE: XR knee limited RT DATE OF EXAM: 02/01/2022 CLINICAL HISTORY: Right knee pain and arthritis status post total knee replacement. TECHNIQUE: Portable AP and crosstable lateral views of the right knee are obtained immediately posto peratively. COMPARISON: CT right knee January 03, 2022 FINDINGS: Metallic hardware from total right knee arthroplasty is seen and appears satisfactory in a lignment and position. There is evidence of recent surgery with diffuse subcutaneous gas , vertical skin kay, and soft tissue swelling noted. IMPRESSION: METALLIC HARDWARE FROM TOTAL RIGHT KNEE ARTHROPLASTY IS SATISFACTORY IN ALIGNMENT.
[2022-02-01] MEDS: LACTATED RINGERS 1,000 ML IV SCH ×2 (15:41→15:42)
[2022-02-01] MEDS: HYDROcodone/APAP 5-325MG 1 EACH TAB PO PRN (16:10)
[2022-02-01] MEDS ORDERED: SENNOSIDES-DOCUSATE SODIUM 1 EACH TAB PO SCH (21:00)
--- NOTE | 2022-02-01 21:22 | P.CONS ---
History of Present Illness - Reason for Consult Consult date: 02/01/22 Medical management - Chief Complaint Severe right knee osteoarthritis - History of Present Illness 66-year-old female patient with history of severe osteoarthritis right knee, who has been managed and failed a long course of nonsurgical treatment and is admitted to the hospital electively for elective total knee displacement - At time of evaluation patient is right total knee replacement, POD #0 Review of Systems REVIEW OF SYSTEMS: CONSTITUTIONAL: No fever, no malaise, no fatigue. HEENT: No recent visual problems or hearing problems. Denied any sore throat. CARDIOVASCULAR: No chest pain, orthopnea, PND, no palpitations, no syncope. PULMONARY: No shortness of breath, no cough, no hemoptysis. GASTROINTESTINAL: No diarrhea, no nausea, no vomiting, no abdominal pain. NEUROLOGICAL: No headaches, no weakness, no numbness. HEMATOLOGICAL: Denies any bleeding or petechiae. GENITOURINARY: Denies any burning micturition, frequency, or urgency. MUSCULOSKELETAL/RHEUMATOLOGICAL: Denies any joint pain, swelling, or any muscle pain. ENDOCRINE: Denies any polyuria or polydipsia. The rest of the 14-point review of systems is negative. Past Medical History Past Medical History: Fibromyalgia, Hyperlipidemia, Osteoarthritis (OA), Thyroid Disorder Additional Past Medical History / Comment(s): EDEMA, CHRONIC BACK PAIN History of Any Multi-Drug Resistant Organisms: None Reported Past Surgical History: Bowel Resection Additional Past Surgical History / Comment(s): RADIO FREQUENCY FOR BACK PAIN, Total Left Knee february 2019, total right knee jan 2022. Past Anesthesia/Blood Transfusion Reactions: No Reported Reaction Past Psychological History: ADD/ADHD, Anxiety, Depression Smoking Status: Never smoker Past Alcohol Use History: None Reported Past Drug Use History: None Reported - Past Family History Mother Family Medical History: Cancer Additional Family Medical History / Comment(s): LEUKEMIA. Medications and Allergies Home Medications Medication Instructions Recorded Confirmed Type Cyclobenzaprine [Flexeril] 10 mg PO Q8H PRN 10/01/16 02/01/22 History DULoxetine HCL [Cymbalta] 60 mg PO HS 10/01/16 02/01/22 History Levothyroxine Sodium [Synthroid] 100 mcg PO MOTUWEFRSA 10/01/16 02/01/22 History Lisdexamfetamine Dimesylate 70 mg PO QAM 10/01/16 02/01/22 History [Vyvanse] LORazepam [Ativan] 1 mg PO QID PRN 02/16/20 02/01/22 History Perphenazine [Trilafon] 16 mg PO HS 02/16/20 02/01/22 History traZODone HCL 100 mg PO HS 02/16/20 02/01/22 History Triamterene/Hydrochlorothiazid 1 each PO QAM #0 02/29/20 02/01/22 Rx [Triamterene-Hctz 37.5-25 mg Tb] DULoxetine HCL [Cymbalta] 30 mg PO QAM 01/30/22 02/01/22 History HYDROcodone/APAP 5-325MG [[place] 1 tab PO Q6HR PRN 01/30/22 02/01/22 History 5-325] Levothyroxine Sodium [Synthroid] 150 mcg PO SUTH 01/30/22 02/01/22 History Rosuvastatin [Crestor] 10 mg PO DAILY 01/30/22 02/01/22 History Semaglutide [Ozempic] 1 mg SQ MAZA 01/30/22 02/01/22 History metFORMIN HCL [Glucophage] 500 mg PO BID 01/30/22 02/01/22 History Aspirin 81 mg PO BID 30 Days #60 tab 02/01/22 Rx Diclofenac Sodium [Voltaren] 75 mg PO BID 30 Days #60 tab 02/01/22 Rx Docusate [Colace] 100 mg PO BID #60 capsule 02/01/22 Rx HYDROcodone/APAP 5-325MG [[place] 1 - 2 tab PO Q6HR PRN 7 Days #32 02/01/22 Rx 5-325] tab Omeprazole 40 mg PO DAILY 30 Days #30 cap 02/01/22 Rx Allergies Allergy/AdvReac Type Severity Reaction Status Date / Time No Known Allergies Allergy Verified 02/01/22 10:22 Physical Exam Vitals: Vital Signs Temp Pulse Resp BP Pulse Ox 02/01/22 17:58 89 111/72 96 02/01/22 17:42 77 126/83 92 L 02/01/22 17:28 87 129/86 92 L 02/01/22 17:13 71 119/81 97 02/01/22 16:57 79 119/78 95 02/01/22 16:42 76 123/80 94 L 02/01/22 16:27 71 133/84 95 02/01/22 16:13 77 125/77 92 L 02/01/22 15:57 97.3 F L 72 16 129/89 93 L 02/01/22 15:15 82 17 123/75 98 02/01/22 15:00 73 16 121/79 99 02/01/22 14:45 68 16 118/60 97 02/01/22 14:30 64 16 121/70 96 02/01/22 14:15 68 16 129/72 95 02/01/22 14:00 68 16 126/71 94 L 02/01/22 13:45 97.5 F L 76 16 132/71 97 02/01/22 11:19 64 16 125/67 100 02/01/22 10:30 98.8 F 71 16 124/75 93 L Intake and Output 02/01/22 02/01/22 02/01/22 06:59 14:59 22:59 Intake Total 1050 400 Output Total 100 Balance 950 400 Intake: IV 1050 400 Output: Estimated Blood Loss 100 Other: Weight 108 kg 108 kg - Constitutional General appearance: Present: average body habitus, cooperative, no acute distress EENT: Present: anicteric sclerae, EOMI, PERRLA, normal appearance Neck: Present: normal ROM. Absent: lymphadenopathy, rigidity, thyromegaly Carotids: negative: bruit present Thyroid: bilateral: normal size, negative: enlarged, nodule Respiratory: bilateral: CTA, negative: rales, rhonchi, wheezing Cardiovascular: regular: S1, S2: systolic murmur, diastolic murmur Gastrointestinal: Present: normal bowel sounds, soft. Absent: distended, organomegaly, tenderness Integumentary: Present: normal turgor. Absent: jaundiced, rash, ulcer Neurologic: Present: CNII-XII intact. Absent: focal deficits Musculoskeletal: Pain in both knees Assessment and Plan Assessment: 1. Severe osteoarthritis right knee; status post right total knee replacement; POD #0 - Your management 2. Hyperlipidemia; Crestor 10 mg by mouth daily 3. Hypothyroidism; levothyroxin 150 MCG every and Friday, 100 MCG Friday and Friday 4. Diabetes mellitus type 2; patient takes metformin 500 mg twice a day; we will hold off while inpatient and monitor Accu-Cheks every seen because of this and sliding scale 5. Hypertension; triamterene/hydrochlorothiazide 30 7. 525 daily DVT prophylaxis; SCDs CODE STATUS; full code
[2022-02-01] MEDS: ASPIRIN 81 MG PO SCH (21:26)
[2022-02-01] MEDS ORDERED: DULoxetine HCL 60 MG CAPSULE.DR PO SCH (21:30)
[2022-02-02] MEDS: LACTATED RINGERS 1,000 ML IV SCH ×3 (01:18→08:35)
[2022-02-02] MEDS: HYDROcodone/APAP 5-325MG 1 EACH TAB PO PRN ×2 (01:18→10:53)
[2022-02-02] MEDS ORDERED: DULoxetine HCL 60 MG CAPSULE.DR PO SCH (01:45)
[2022-02-02] MEDS ORDERED: LEVOTHYROXINE 100 MCG TAB PO SCH (06:30)
[2022-02-02 07:39] LABS: African American GFR (CKD) >90 (>60 ml/min/1.73 sqM); Anion Gap 9 mmol/L; Blood Urea Nitrogen 21 mg/dL (7-17); Calcium 8.8 mg/dL (8.4-10.2); Carbon Dioxide 21 mmol/L (22-30); Chloride 107 mmol/L (98-107); Glucose 117 mg/dL (74-99); Non-African American GFR(CKD) >90 (>60 ml/min/1.73 sqM); Sodium 137 mmol/L (137-145)
[2022-02-02 08:14] LABS: Potassium 4.7 mmol/L (3.5-5.1)
[2022-02-02] MEDS: ASPIRIN 81 MG PO SCH (08:34)
[2022-02-02] MEDS ORDERED: TRIAMTERENE-HCTZ 37.5-25MG 1 EACH TAB PO SCH (09:00)
[2022-02-02] MEDS ORDERED: DULoxetine HCL 30 MG CAPSULE.DR PO SCH (09:00)
[2022-02-02] MEDS ORDERED: NON FORMULARY DRUG (Lisdexamfetamine Dimesylate [Vyvanse] 70 MG Capsule) PO SCH (09:00)
[2022-02-02 09:29] VITALS: BP 103/62; PULSE 83; RESP 16; TEMP 98.1
--- NOTE | 2022-02-02 09:48 | P.DS ---
Providers Expected date of discharge: 02/02/22 Attending physician: Jose Manuel Smith Consults: 02/01/22 13:52 Consult Physician Routine Consulting Provider: Marti Bocanegra Consult Reason/Comments: medical management Do you want consulting provider notified?: Yes Primary care physician: Omar Rivera - Discharge Diagnosis(es) (1) Primary localized osteoarthritis of right knee Current Visit: Yes Status: Acute (2) Status post total right knee replacement Current Visit: Yes Status: Acute (3) Chronic pain Current Visit: Yes Status: Acute (4) Fibromyalgia Current Visit: Yes Status: Acute Hospital Course: This is a 66-year-old female who was last seen with complaint of continued right knee pain. The patient has a known history of degenerative arthritis of the right knee and presents to discuss surgical options. After discussion and consideration the patient elects to proceed with total right knee arthroplasty. The patient is seen preoperatively by her primary care physician and cleared for surgery. The patient is admitted to [facility] for total right knee arthroplasty. The procedures performed without complication or sequelae. Patient is doing well postoperatively. Vital signs are stable at discharge. Labs are stable at discharge. the patient is ambulating well with walker with minimal assistance. The patient is discharged to home on postop day #1. She does have a pain contract but was given permission from her pain management doctor to deviate from her contract postoperatively. We will prescribe Percocet 5 for the next week then she may resume her normal pain management regime. Please see orders and refer to the med rec for accurate list of medications. Patient Condition at Discharge: Good Plan - Discharge Summary Discharge Rx Participant: Yes New Discharge Prescriptions: New Docusate [Colace] 100 mg PO BID #60 capsule Aspirin 81 mg PO BID 30 Days #60 tab Omeprazole 40 mg PO DAILY 30 Days #30 cap Diclofenac Sodium [Voltaren] 75 mg PO BID 30 Days #60 tab oxyCODONE HCL/ACETAMINOPHEN [Oxycodone-Acetaminophen 5-325] 1 each PO Q6H PRN #28 tab PRN Reason: Pain No Action Lisdexamfetamine Dimesylate [Vyvanse] 70 mg PO QAM Levothyroxine Sodium [Synthroid] 100 mcg PO MOTUWEFRSA DULoxetine HCL [Cymbalta] 60 mg PO HS Cyclobenzaprine [Flexeril] 10 mg PO Q8H PRN PRN Reason: Muscle Spasm Perphenazine [Trilafon] 16 mg PO HS LORazepam [Ativan] 1 mg PO QID PRN PRN Reason: Anxiety traZODone HCL 100 mg PO HS Triamterene/Hydrochlorothiazid [Triamterene-Hctz 37.5-25 mg Tb] 1 each PO QAM #0 Rosuvastatin [Crestor] 10 mg PO DAILY DULoxetine HCL [Cymbalta] 30 mg PO QAM metFORMIN HCL [Glucophage] 500 mg PO BID Semaglutide [Ozempic] 1 mg SQ MAZA HYDROcodone/APAP 5-325MG [[place] 5-325] 1 tab PO Q6HR PRN PRN Reason: Pain Levothyroxine Sodium [Synthroid] 150 mcg PO SUTH Discharge Medication List Cyclobenzaprine [Flexeril] 10 mg PO Q8H PRN 10/01/16 [History] DULoxetine HCL [Cymbalta] 60 mg PO HS 10/01/16 [History] Levothyroxine Sodium [Synthroid] 100 mcg PO MOTUWEFRSA 10/01/16 [History] Lisdexamfetamine Dimesylate [Vyvanse] 70 mg PO QAM 10/01/16 [History] LORazepam [Ativan] 1 mg PO QID PRN 02/16/20 [History] Perphenazine [Trilafon] 16 mg PO HS 02/16/20 [History] traZODone HCL 100 mg PO HS 02/16/20 [History] Triamterene/Hydrochlorothiazid [Triamterene-Hctz 37.5-25 mg Tb] 1 each PO QAM #0 02/29/20 [Rx] DULoxetine HCL [Cymbalta] 30 mg PO QAM 01/30/22 [History] HYDROcodone/APAP 5-325MG [[place] 5-325] 1 tab PO Q6HR PRN 01/30/22 [History] Levothyroxine Sodium [Synthroid] 150 mcg PO SUTH 01/30/22 [History] Rosuvastatin [Crestor] 10 mg PO DAILY 01/30/22 [History] Semaglutide [Ozempic] 1 mg SQ MAZA 01/30/22 [History] metFORMIN HCL [Glucophage] 500 mg PO BID 01/30/22 [History] Aspirin 81 mg PO BID 30 Days #60 tab 02/01/22 [Rx] Diclofenac Sodium [Voltaren] 75 mg PO BID 30 Days #60 tab 02/01/22 [Rx] Docusate [Colace] 100 mg PO BID #60 capsule 02/01/22 [Rx] Omeprazole 40 mg PO DAILY 30 Days #30 cap 02/01/22 [Rx] oxyCODONE HCL/ACETAMINOPHEN [Oxycodone-Acetaminophen 5-325] 1 each PO Q6H PRN #28 tab 02/02/22 [Rx] Follow up Appointment(s)/Referral(s): Jose Manuel Smith MD [Medical Doctor] - 2 Weeks Activity/Diet/Wound Care/Special Instructions: Attend outpatient physical therapy appointments as set up prior to surgery at [facility]. Weight bear to tolerance on operative extremity with a walker. Keep operative dressings intact until follow-up appointment in the office. Call the office if dressing becomes saturated or falls off. May shower over dressing. Take pain medications as prescribed. Take aspirin 81mg BID x 4 weeks for blood clot prevention. Follow-up in the office in two weeks at [facility]. Call the office with any questions or concerns, Discharge Disposition: HOME WITH HOME HEALTH SERVICES
[2022-02-02 11:31] LABS: Basophils # (A) 0.02 X 10*3/uL (0.00-0.10); Basophils % (A) 0.2 %; Eosinophils # (A) 0 X 10*3/uL (0.04-0.35); Eosinophils % (A) 0 %; HCT 35.9 % (37.2-46.3); HGB 11.3 g/dL (12.0-15.0); Immature Grans, Automated 0.4 %; Lymphocytes # (A) 1.59 X 10*3/uL (0.90-5.00); MCH 29.3 pg (27.0-32.0); MCHC 31.5 g/dL (32.0-37.0); Mean Platelet Volume 10.7 fL (9.5-12.2); Monocytes % (A) 6.8 %; NRBC Per 100 WBC 0 /100 WBCS (0.0-0.0); Neutrophils # (A) 10.67 X 10*3/uL (1.80-7.70); Neutrophils % (A) 80.6 %; Platelet Count 285 X 10*3/uL (140-440); RBC 3.86 X 10*6/uL (4.10-5.20); RDW 13.2 % (11.5-14.5); WBC 13.23 X 10*3/uL (4.50-10.00)
[2022-02-02] MEDS ORDERED: PERPHENAZINE 4 MG TAB PO SCH (21:00)
[2022-02-02] MEDS ORDERED: traZODone HCL 100 MG TAB PO SCH (21:00)
[2022-02-03] MEDS ORDERED: LEVOTHYROXINE 75 MCG TAB PO SCH (06:30)
--- NOTE | 2022-02-03 19:17 | P.ANPRN ---
Procedure Note - Anesthesia - Nerve Block Performed Right Adductor Canal Single Time Out Performed: Yes Date of Procedure: 02/01/22 Procedure Start Time: 11:11 Procedure Stop Time: 11:15 Location of Patient: PreOp Indication: Acute Post-Operative Pain, Requested by Surgeon Sedation Type: Sedate with meaningful contact maintained Preparation: Sterile Prep Position: Supine Needle Types: Pajunk Needle Gauge: 21 Ultrasound used to visualize needle placement: Yes Ultrasound used to observe medication spread: Yes Blood Aspirated: No Pain Paresthesia on Injection Noted: No Resistance on Injection: Normal Image Stored and Saved: Yes Events: Uneventful and Well Tolerated (Ropivacaine 0.5% 20 mL plus dexamethasone 4 mg)
--- NOTE | 2022-02-03 19:19 | P.ANPRN ---
Procedure Note - Anesthesia - Nerve Block Performed Right Sinanck Single Time Out Performed: Yes Date of Procedure: 02/01/22 Procedure Start Time: 11:16 Procedure Stop Time: 11:18 Location of Patient: PreOp Indication: Acute Post-Operative Pain, Requested by Surgeon Sedation Type: Sedate with meaningful contact maintained Preparation: Sterile Prep Position: Supine Needle Types: Pajunk Needle Gauge: 21 Ultrasound used to visualize needle placement: Yes Ultrasound used to observe medication spread: Yes Blood Aspirated: No Pain Paresthesia on Injection Noted: No Resistance on Injection: Normal Image Stored and Saved: Yes Events: Uneventful and Well Tolerated (Ropivacaine 0.5% 25 mL plus dexamethasone 4 Mg)
== END 2022-02-02 11:30 | disposition home health service (06) ==
LOC: OR 09:55 → 4SSUR 13:45 → OR 02-02 11:30
PROVIDERS: ATTEND Orthopaedic Surgery
DX: M17.11 Unilateral primary osteoarthritis, right knee (principal); G89.29 Other chronic pain; M79.7 Fibromyalgia; E78.5 Hyperlipidemia, unspecified; M19.90 Unspecified osteoarthritis, unspecified site; E07.9 Disorder of thyroid, unspecified; F41.8 Other specified anxiety disorders; Z98.84 Bariatric surgery status; F90.9 Attention-deficit hyperactivity disorder, unspecified type; Z79.890 Hormone replacement therapy; Z79.899 Other long term (current) drug therapy; Z79.82 Long term (current) use of aspirin; Z79.1 Long term (current) use of non-steroidal anti-inflammatories (NSAID)
CPT/HCPCS: 97116; 97162; 80048; 85025; 73560; 27447; 64447; 64999; C1776; C1713; J1100; J0690 ×2; J2405; J1170 ×2; J1885; 76942

== ENCOUNTER → 2023-01-01 | Outpatient (CLI) | payer MEDICARE, BC ==
--- NOTE | 2023-01-01 14:07 | US ---
EXAMINATION TYPE: US carotid duplex BILAT DATE OF EXAM: 01/01/2023 COMPARISON: NONE CLINICAL INDICATION: Female, 67 years old with history of G45.9 TRANSIENT CEREBRAL ISCHEMIC ATTACK, U [id number] GAMBINO; Patient states numbing/ tingling feeling radiating from feet up to head TECHNIQUE: Carotid duplex ultrasound examination. Indirect Doppler criteria was utilized. FINDINGS: EXAM MEASUREMENTS: RIGHT: Peak Systolic Velocity (PSV) cm/sec ----- Right CCA: 88.6 ----- Right ICA: 127.4 ----- Right ECA: 93.0 ICA/CCA ratio: 1.4 RIGHT: End Diastole cm/sec ----- Right CCA: 31.4 ----- Right ICA: 22.3 ----- Right ECA: 21.5 LEFT: Peak Systolic Velocity (PSV) cm/sec ----- Left CCA: 97.0 ----- Left ICA: 108.1 ----- Left ECA: 109.9 ICA/CCA ratio: 1.1 LEFT: End Diastole cm/sec ----- Left CCA: 30.5 ----- Left ICA: 46.7 ----- Left ECA: 27.0 VERTEBRALS (direction of flow): Right Vertebral: Antegrade Left Vertebral: Antegrade Rhythm: Normal SEALER SANDER NOTES: Plaque seen left and right bulb. Bilateral wall thickening. No elevated velocities or significant stenosis seen. IMPRESSION: No hemodynamically significant ICA stenosis on either side. Criteria for Assigning % of Stenosis / Diameter reduction (Estimation based on the indirect measurements of the internal carotid artery velocities (ICA PSV). 1. Normal (no stenosis)=ICA PSV < 125 cm/s: ratio < 2.0: ICA EDV<40 cm/s. 2. Less than 50% stenosis=ICA PSV < 125 cm/s: ratio < 2.0: ICA EDV<40 cm/s. 3. 50 to 69% stenosis=ICA PSV of 125 to 230 cm/s: ration 2.0 ? 4.0: ICA EDV 40-100 cm/s. 4. Greater than 70% stenosis to near occlusion= ICA PSV > 230 cm/s: ratio > 4.0: ICA EDV > 100 cm/s. 5. Near occlusion= ICA PSV velocities may be low or undetectable: variable ratio and ICA EDV. 6. Total occlusion=unable to detect flow.
== END | disposition home or self-care (01) ==
LOC: RADUSWWP 10:02
PROVIDERS: ATTEND Internal Medicine Geriatric Medicine
DX: G45.9 Transient cerebral ischemic attack, unspecified (principal); R20.2 Paresthesia of skin
CPT/HCPCS: 93880

== ENCOUNTER → 2023-05-20 | Outpatient (CLI) | payer MEDICARE, BC | END | disposition home or self-care (01) | LOC: LABWHC1 14:16 | PROVIDERS: ATTEND Physical Medicine & Rehabilitation Pain Medicine | DX: Z01.818 Encounter for other preprocedural examination (principal) | CPT/HCPCS: 93005 ==

== ENCOUNTER 2023-07-14 06:12 | Day surgery (SDC) | payer MEDICARE, BC ==
[2023-07-11 10:31] VITALS: BMI 32.8
[~2023-07-14 06:12] MED LIST changes: -ACETAMINOPHEN TAB 500 MG TAB PO PRN; -DEXAMETHASONE SOD PHOSPHATE 10 MG/ML 1 ML VIAL IV PRN; -DEXAMETHASONE SOD PHOSPHATE 4 MG/ML 1 ML VIAL IV ONE; -DOCUSATE 100 MG CAP PO PRN; -FAMOTIDINE 20 MG/2 ML VIAL IVP PRN; -HYDROmorphone 0.5 MG/0.5 ML SYRINGE IVP PRN; -KETOROLAC 15 MG/ML 1 ML VIAL IVP PRN; -LIDOCAINE 1% (10MG/ML) FOR IV START INTRADERMA PRN; -ONDANSETRON 4 MG/2 ML VIAL IVP ONE; -ONDANSETRON 4 MG/2 ML VIAL IVP PRN; -ROPIVACAINE 246.25 MG, EPINEPHrine 0.5 MG, KETOROLAC (30 mg/mL) 30 MG, cloNIDine HCL/PF... MISCELLANE PRN; -ROPIVACAINE/EPI/CLONIDINE/KET 50 ML SYRINGE MISCELLANE PRN; +SODIUM CHLORIDE 0.9% 1,000 ML IV SCH; -TRANEXAMIC ACID IN NACL,ISO-OS 1,000 MG in SALINE 1 100ML.BAG IVPB PRN; -oxyCODONE ER 10 MG TAB.ER.12H PO PRN
[2023-07-14 06:46] LABS: Glucose,Whole Blood 132 mg/dL (70-110)
[2023-07-14] MEDS: SODIUM CHLORIDE 0.9% 500 ML 500 ML IV ONE (06:46)
[2023-07-14 07:14] VITALS: RESP 16
[2023-07-14 09:07] VITALS: BP 142/73; PULSE 82
--- NOTE | 2023-07-15 18:01 | P.EPPROC ---
- EP Procedure Note Electrophysiology Procedure Note: Diagnosis Recurrent presyncope Twelve-lead EKG shows sinus mechanism normal SC narrow QRS normal ST segments normal QT interval Tilt table test per protocol Baseline heart rate 66 beats minute, baseline blood pressure 107/66 mmHg She was tilted upright in angle of 70 degrees per protocol she became very dizzy and lightheaded. Pulse rate 107 beats a minute blood pressure 96/52 mmHg Subsequently her blood pressure normalized However she felt very dizzy and shaky. She was tachypneic and clammy and she felt that she was groggy pass out Later she stated that she could not stand any further at that time her blood pressure was elevated heart rates 210 beats a minute When she was laid supine her heart rate normalized in the 60s Impression Likely orthostatic intolerance Twelve-lead EKG is normal
== END 2023-07-14 08:43 | disposition home or self-care (01) ==
LOC: CATHEP 06:12
PROVIDERS: ATTEND Internal Medicine Clinical Cardiac Electrophysiology
DX: R55 Syncope and collapse (principal)
CPT/HCPCS: 93660

== ENCOUNTER 2023-07-29 06:15 | Day surgery (SDC) | payer MEDICARE, BC ==
[2023-07-28 13:26] VITALS: BMI 32.8
[2023-07-29] MEDS ORDERED: SODIUM CHLORIDE 0.9% 500 ML BAG IV STA (06:50)
[2023-07-29] MEDS: SODIUM CHLORIDE 0.9% 500 ML DEHP FREE BAG IV STA (06:51)
[2023-07-29] MEDS: IV FLUID CONTINUATION 1,000 ML IV ONE (06:52)
[2023-07-29 07:09] VITALS: TEMP 98.5
[2023-07-29 08:42] VITALS: BP 117/72; PULSE 92; RESP 16
--- NOTE | 2023-07-29 20:15 | P.EPPROC ---
- EP Procedure Note Electrophysiology Procedure Note: Diagnosis Recurrent presyncope Twelve-lead EKG shows sinus rhythm normal [place] narrow QRS normal ST segments Tilt table test per protocol Baseline blood pressure 124/70 mmHg, baseline heart rate 76 beats a minute Patient was tilted upright in angle of 70 degrees per protocol Increase in heart rate over the next 10 to 12 minutes 206 beats a minute with symptoms of weakness in the legs Finally the patient could not stand any further and requested that she be laid flat When she was laid flat heart rate decreased to 66 beats a minute Impression Normal twelve-lead EKG Likely mild orthostatic intolerance
== END 2023-07-29 09:00 | disposition home or self-care (01) ==
LOC: CATHEP 06:15
PROVIDERS: ATTEND Internal Medicine Clinical Cardiac Electrophysiology
DX: R55 Syncope and collapse (principal)
CPT/HCPCS: 93660

== ENCOUNTER → 2023-09-12 | Outpatient (CLI) | payer MEDICARE, BC ==
--- NOTE | 2023-09-18 12:09 | NM ---
EXAMINATION TYPE: NM DatScan Brain SPECT DATE OF EXAM: 09/12/2023 COMPARISON: NONE HISTORY: Tremors TECHNIQUE: 10 drops of Lugol's solution was administered 1 hour prior to injection as a thyroid bloc ja agent. After the administration of 4.53 mCi I-123 Ioflupane DaTscan. Images obtained 3 hours p ost injection. SPECT images of the brain were acquired with axial and coronal reconstructions. FINDINGS: The axial SPECT images demonstrate normal background activity. Accounting for head tilt, t here appears to be slight asymmetrically blunted comma-shaped appearance of the right corpus striatum . Z score analysis was performed. IMPRESSION: Slightly blunted striatal activity on the right may indicate early changes of idiopathic Parkinson's disease or Parkinsonian syndrome.
== END | disposition home or self-care (01) ==
LOC: RADNMMAIN 10:35
PROVIDERS: ATTEND Psychiatry & Neurology Neurology
DX: G20.A1 Parkinson's disease without dyskinesia, without mention of fluctuations (principal)
CPT/HCPCS: 78803; A9584

== ENCOUNTER 2024-07-30 07:42 | Day surgery (SDC) | payer MEDICARE, BC ==
[~2024-07-30 07:42] MED LIST changes: -SODIUM CHLORIDE 0.9% 1,000 ML IV SCH; +TRANEXAMIC 1,000 MG/100ML-NACL 1,000 MG in SALINE 1 100ML.BAG IV PRN; +TRANEXAMIC 1,000 MG/100ML-NACL 1,000 MG in SALINE 1 100ML.BAG IVPB PRN
[2024-07-30] MEDS: LACTATED RINGERS 1,000 ML IV ONE ×3 (08:02→11:21)
[2024-07-30 08:40] LABS: Glucose,Whole Blood 143 mg/dL (70-110)
[2024-07-30] MEDS: DOCUSATE 100 MG CAP PO PRN (09:02)
[2024-07-30] MEDS: ACETAMINOPHEN TAB 500 MG TAB PO PRN (09:02)
[2024-07-30] MEDS: LACTATED RINGERS 1,000 ML IV SCH (09:02)
[2024-07-30] MEDS: oxyCODONE ER 10 MG TAB.ER.12H PO PRN (09:02)
[2024-07-30] MEDS: ONDANSETRON 4 MG/2 ML VIAL IVP PRN (09:04)
[2024-07-30] MEDS: DEXAMETHASONE SOD PHOSPHATE 10 MG/ML 1 ML VIAL IV PRN (09:04)
[2024-07-30] MEDS: KETOROLAC 15 MG/ML 1 ML VIAL IVP PRN (09:04)
[2024-07-30] MEDS: FAMOTIDINE 20 MG/2 ML VIAL IVP PRN (09:05)
[2024-07-30] MEDS: MIDAZOLAM 2 MG/2 ML VIAL IV PRN (09:15)
[2024-07-30] MEDS ORDERED: PROPOFOL 10 MG/ML 20 ML VIAL IV ONE (09:42)
[2024-07-30] MEDS ORDERED: ROPIVACAINE 5 MG/ML 30 ML VIAL ONE (09:42)
[2024-07-30] MEDS ORDERED: LIDOCAINE 1% INJ 10MG/ML (20 ML MDV) ONE (09:42)
[2024-07-30] MEDS ORDERED: TRANEXAMIC 1,000 MG/100ML-NACL PREMIX BAG ONE (09:42)
[2024-07-30] MEDS ORDERED: NEOSTIGMINE 1 MG/ML 10 ML VIAL ONE (09:42)
[2024-07-30] MEDS ORDERED: SUCCINYLCHOLINE CHLORIDE 200 MG/10 ML VIAL IV ONE (09:42)
[2024-07-30] MEDS ORDERED: fentaNYL (PF) 50 MCG/ML 2 ML AMP ONE (09:42)
[2024-07-30] MEDS ORDERED: GLYCOPYRROLATE 0.2 MG/ML 2 ML VIAL ONE (09:42)
[2024-07-30] MEDS ORDERED: HYDROmorphone (PF) 1 MG/ML ONE (09:42)
[2024-07-30] MEDS ORDERED: ROCURONIUM 10 MG/ML (5 ML VIAL) IV ONE (09:42)
[2024-07-30] MEDS ORDERED: DEXAMETHASONE SOD PHOSPHATE 4 MG/ML 1 ML VIAL ONE (09:42)
[2024-07-30] MEDS: ceFAZolin 2 GM in DEXTROSE 5% IN WATER 50 ML IVPB PRN (09:45)
[2024-07-30] MEDS: ROPIVACAINE/EPI/CLONIDINE/KET 50 ML SYRINGE MISCELLANE PRN (10:20)
--- NOTE | 2024-07-30 10:44 | P.ANPRN ---
Procedure Note - Anesthesia - Nerve Block Performed Right Adductor Canal Single Time Out Performed: Yes Date of Procedure: 07/30/24 Procedure Start Time: : Procedure Stop Time: Location of Patient: PreOp Indication: Acute Post-Operative Pain, Requested by Surgeon Sedation Type: Sedate with meaningful contact maintained Preparation: Sterile Prep, Sterile Dressing Position: Supine Catheter: None Needle Types: Facet Needle Gauge: 20 Ultrasound used to visualize needle placement: Yes Ultrasound used to observe medication spread: Yes Injectate: 0.5% Ropivacaine (see comment for volume) (30 ml + decadron 4 mg) Blood Aspirated: No Pain Paresthesia on Injection Noted: No Resistance on Injection: Normal Image Stored and Saved: Yes Events: Uneventful and Well Tolerated
--- NOTE | 2024-07-30 11:51 | P.OP ---
Date of Procedure: 07/30/24 Preoperative Diagnosis: 1. Severe right hip osteoarthritis 2. BMI 36 3. Fibromyalgia 4. Lumbar degenerative disc disease Postoperative Diagnosis: Same Procedure(s) Performed: 1. Right direct anterior total hip arthroplasty 2. Application of negative pressure incisional wound VAC, right hip, DME, incision measuring 20 cm, less than 50 cm Implants: 1. Teodoro Trident II Acetabular Cup, Size #54 2. [place] Insignia Size #6 Femoral Stem, High Offset 3. Biolox delta femoral head, 36 mm, - 5 mm neck Anesthesia: GETA, regional Surgeon: Jose Manuel Smith Consumer Lender #1: Georgi Pavon Estimated Blood Loss (ml): 500 IV fluids (ml): 800 Pathology: none sent Condition: stable Disposition: PACU Indications for Procedure: I had a long discussion with the patient in the office on the potential risks and complications of an elective total hip replacement through a direct anterior approach. Risks discussed include, but are certainly not limited to, risks from anesthesia, superficial infection requiring local wound care or antibiotics, deep yosef-prosthetic joint infection and the treatment required to eradicate infection, intraoperative fracture, postoperative periprosthetic fracture, damage to local blood vessels or nerves particularly the lateral femoral cutaneous nerve, delayed wound healing requiring local wound care or possibly surgical debridement, hip dislocation, leg length discrepancy, soft tissue irritation around the total hip implant such as iliopsoas tendinitis or trochanteric bursitis, wear and osteolysis from the implants, squeaking or audible noises, groin pain, thigh pain, heterotopic ossification, stiffness, aseptic loosening of the implants, dissatisfaction with surgical outcome, need for revision surgery, DVT, PE, swelling of the operative extremity, acute cor onary event, stroke, failure to thrive, and possibly loss of life or limb. The patient understands that while these are the most common complications after an elective hip replacement there are certainly other less common complications possible. They were given ample time to ask questions regarding the potential complications of a hip replacement. Following our discussion the patient provided their verbal and written consent to go forward with an elective total hip replacement. The patient also has a history of fibromyalgia and lumbar degenerative disc disease. The majority of her symptoms were in her groin and down the anterior aspect of her thigh. We both agreed that intra-articular hip arthritis was the most likely cause of her leg pain. We also both acknowledged the possibility of continued pain due to her fibromyalgia and lumbar degenerative disc disease. Operative Findings: Severe right hip arthritis with complete loss of cartilage from the femoral head and acetabulum Description of Procedure: The patient was identified in the preoperative holding area and the correct hip was marked with my initials. I reviewed the procedure and consent with the patient. All of their questions were answered. The patient was then brought back into the operating room by anesthesia. While on the [facility] anesthesia was administered by the anesthesia team. Preoperative antibiotics and tranexamic acid were also given. After the patient was under anesthesia I examined their ankles to determine their preoperative leg length discrepancy. The skin over the anterior aspect of the hip was shaved to remove hair over the site of planned incision. Both feet and ankles were padded with webril and boots for the [place] were applied. The patient was then carefully transferred onto the [place] table. A perineal post was immediately placed. The arms were placed on arm holders and were well-padded. Both boots were secured to the spars on the [place] table. The patient was positioned so that the pelvis was centered over the post. Nonsterile drapes were applied. A timeout was performed identifying the correct patient, operative extremity, and procedure. At this point fluoroscopy was brought in to take preoperative images of the pelvis and operative hip. Using the standing AP pelvis from the office as a template, a comparable image was obtained with fluoroscopy. A metallic bar was used to create a bi-ischial line for use as a reference to leg length adjustments during the procedure. Global offset was also measured on both the operative and nonoperative leg. Fluoroscopy was then brought out and a pre-scrub using a chlorhexidine scrub brush was performed. The operative limb was then prepped and draped in the standard sterile fashion. An anterior longitudinal incision was made lateral and distal to the ASIS. The skin and subcutaneous tissues were incised sharply. The underlying tensor fascia was identified and incised in its midportion. The fascia was dissected free from the underlying muscle and the muscle belly was retracted. A blunt tipped cobra retractor was placed over the superior neck under the muscle fibers of the gluteus minimus. The deep enveloping fascia of the tensor was incised. The anterior leash of vessels were then identified and cauterized. The fascia between the rectus and the capsule was then incised and the pre-capsular fat was excised. A second Cobra was placed inferior to the neck. The interval between the rectus and iliocapsularis and the hip capsule was developed and a retractor was placed carefully over the anterior rim of the acetabulum. A T-shaped anterior capsulotomy was performed. The superior capsular leaflet was left in place in the inferior capsular flap was excised. The Cobra retractors were placed intracapsularly. We then made a femoral neck osteotomy according to preoperative and intraoperative templating and confirmed the level of the osteotomy using fluoroscopic imaging. The femoral head was removed, passed off to the back table, and sized. The superior capsular flap was excised. Retractors were placed circumferentially exposing the acetabulum. We then circumferentially debrided the acetabulum free of labrum and osteophytes. The pulvinar was removed to fully visualize the cotyloid fossa. We then sequentially reamed to achieve peripheral fit and excellent bleeding subchondral bone. The socket was thoroughly irrigated. The acetabular component was impacted into the appropriate position using fluoroscopy to guide version, inclination, and depth of insertion taking care to have a comparable image of the AP pelvis to the standing image taken in the office. An excellent press-fit was achieved and final position was confirmed using fluoroscopy. The press fit was augmented with a bony cancellus dome screw. The liner was then impacted into the socket. Attention was then turned to the femur. The remnant dorsal lateral capsule was excised. The short external rotators were visible and protected. A bone hook was used to confirm appropriate translation of the trochanter away from the acetabulum. The leg was then extended and adducted and the bone hook was used to elevate the femur for broaching. A box osteotome and blunt tipped canal sound was then utilized to gain access to the femoral canal. We then sequentially broached the femur in appropriate anteversion until excellent torsional stability was achieved. The neck cut was brought flush to the trial broach with a calcar planar. A trial neck and head were then placed onto the broach and the hip was atraumatically reduced under direct visualization. External rotation to 90 was performed to assess stability. Fluoroscopy was brought in. An AP and lateral fluoroscopic image of the proximal femur was obtained to assess position and fill of the trial broach. An AP of the pelvis was then obtained and matched to the preoperative image taken. A bi-ischial bar was then placed and measurements were taken to assess changes in length and offset. The hip was then carefully dislocated, the proximal femur was exposed, and the trial implants were removed. The wound and proximal femur was thoroughly irrigated using sterile saline and pulsatile lavage. The final femoral implant was dispensed and gently tapped into place generating an excellent press-fit. The trunnion was cleansed and the final head was tapped into place to engage the Lozano taper. The acetabulum was irrigated and visualized to be free of debris. The hip was carefully reduced. Stability was checked clinically with external rotation to 90 and there was no evidence of instability. Final fluoroscopic images were taken. The wound was then thoroughly irrigated and soaked with a dilute Betadine rinse for 3 minutes. 3 L of sterile saline was irrigated through the wound using pulsatile lavage. Local anesthetic cocktail was injected into the soft tissues around the surgical field. The wound was then closed in layers. Due to the patient's body habitus and incisional wound VAC was placed over the surgical incision. The drapes were taken down and the patient was carefully transferred off of the [place] table. Following removal of the boots the leg lengths felt acceptable. The patient was then taken to recovery room having tolerated the procedure well. Georgi Pavon PA-C was required as a skilled operator/assistant foreman due to the complexity of surgery for patient positioning, draping, exposure, retraction, closure of wound and application of dressing. PLAN: The patient can weight-bear as tolerated on the operative extremity. 2 doses of postoperative antibiotics. DVT prophylaxis with aspirin 81 mg twice a day based on preoperative risk stratification. Physical therapy for gait training.
[2024-07-30] MEDS ORDERED: HYDROmorphone 1 MG/ML 1 ML SYRINGE IVP PRN (11:52)
[2024-07-30] MEDS ORDERED: diazePAM 5 MG TAB PO PRN ×2 (11:52)
[2024-07-30] MEDS ORDERED: NALOXONE 0.4 MG/ML 1 ML VIAL IV PRN (11:52)
[2024-07-30] MEDS ORDERED: ONDANSETRON 4 MG/2 ML VIAL IVP PRN (11:52)
[2024-07-30] MEDS ORDERED: MAGNESIUM HYDROXIDE 2,400 MG/30 ML CUP PO PRN (11:52)
[2024-07-30] MEDS ORDERED: TEMAZEPAM 15 MG CAP PO PRN (11:52)
[2024-07-30] MEDS ORDERED: HYDROmorphone 0.5 MG/0.5 ML SYRINGE IVP PRN ×2 (11:52)
[2024-07-30] MEDS ORDERED: HYDROcodone/APAP 5-325MG 1 EACH TAB PO PRN (11:52)
[2024-07-30] MEDS ORDERED: hydrOXYzine pamoate 25 MG CAP PO PRN (11:52)
--- NOTE | 2024-07-30 12:52 | FL ---
Fluoroscopy INDICATION: Pain FINDINGS: Fluoroscopy time: 31.9 seconds. Total dose area product (DAP) in uGy*m?, mGy*cm? (or similar): 1.4901 Images obtained: 6. Images document the procedure. IMPRESSION: 1. Documentation of fluoroscopy. [facility], , 07/30/2024 12:50 PM
--- NOTE | 2024-07-30 13:20 | XR ---
Fluoroscopy INDICATION: Pain FINDINGS: Fluoroscopy time: 31.9 seconds. Total dose area product (DAP) in uGy*m?, mGy*cm? (or similar): 1.4901 Images obtained: 6. Images document right hip prosthesis placement IMPRESSION: 1. Documentation of fluoroscopy. [facility], , 07/30/2024 1:18 PM
[2024-07-30] MEDS: HYDROmorphone 0.5 MG/0.5 ML SYRINGE IVP PRN (13:51)
[2024-07-30] MEDS: IV FLUID CONTINUATION 1,000 ML IV ONE (14:21)
[2024-07-30 14:40] LABS: Glucose,Whole Blood 162 mg/dL (70-110)
[2024-07-30] MEDS: SODIUM CHLORIDE 0.9% 1,000 ML IV SCH (15:02)
[2024-07-30] MEDS ORDERED: LORazepam 1 MG TAB PO PRN (16:28)
[2024-07-30] MEDS ORDERED: DEXTROSE 50% SYRINGE 50 ML IVP PRN ×2 (16:40)
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
[2024-07-30 16:59] LABS: Glucose,Whole Blood 130 mg/dL (70-110)
[2024-07-30] MEDS: INSULIN LISPRO (HumaLOG) 100 UNIT/ML 10 mL VL SQ SCH (17:44)
[2024-07-30] MEDS: ceFAZolin 2 GM in DEXTROSE 5% IN WATER 50 ML IVPB SCH (17:55)
[2024-07-30] MEDS: HYDROcodone/APAP 10-325MG 1 EACH TAB PO PRN (18:01)
[2024-07-30 21:04] LABS: Glucose,Whole Blood 188 mg/dL (70-110)
[2024-07-30] MEDS: ASPIRIN 81 MG PO SCH (21:06)
[2024-07-30] MEDS: SENNOSIDES-DOCUSATE SODIUM 1 EACH TAB PO SCH (21:07)
[2024-07-30] MEDS: ATORVASTATIN 10 MG TAB PO SCH (21:07)
[2024-07-30] MEDS: ARIPiprazole 10 MG TAB PO SCH (21:07)
[2024-07-30] MEDS: DULoxetine HCL 60 MG CAPSULE.DR PO SCH (21:07)
[2024-07-30] MEDS: traZODone HCL 100 MG TAB PO SCH (21:08)
[2024-07-30] MEDS: MUPIROCIN 2% OINT 22 GM TUBE NASAL SCH (21:08)
[2024-07-31 06:16] LABS: Glucose,Whole Blood 123 mg/dL (70-110)
[2024-07-31] MEDS: LEVOTHYROXINE 125 MCG TAB PO SCH (06:25)
[2024-07-31] MEDS: PANTOPRAZOLE 40 MG TABLET PO SCH (06:27)
[2024-07-31 08:00] VITALS: RESP 17; TEMP 98.3
--- NOTE | 2024-07-31 08:20 | P.DS ---
Providers Date of admission: Friday07/30/2024 Attending physician: Jose Manuel Smith Consults: 07/30/24 11:52 Consult Physician Routine Consulting Provider: Marti Bocanegra Consult Reason/Comments: post op medical management Do you want consulting provider notified?: Yes Primary care physician: Omar Rivera [facility] Course: Very pleasant 69-year-old female who was admitted under my care yesterday after undergoing an uncomplicated total hip replacement. She was transferred to the orthopedic floor. She received 2 doses of postoperative antibiotics. Transition from IV to oral pain medication. She was seen on postoperative day #1 and was doing well. Her incisional is intact with good seal. Femoral nerve function was intact. She was able to actively plantarflex and dorsiflex her ankle and her toes. Seen by internal medicine. Physical therapy was ordered. She was tentatively cleared for discharge home pending physical therapy and pain control Patient Condition at Discharge: Good Plan - Discharge Summary Discharge Rx Participant: No New Discharge Prescriptions: No Action DULoxetine HCL [Cymbalta] 120 mg PO HS Cyclobenzaprine [Flexeril] 10 mg PO Q8H PRN PRN Reason: Muscle Spasm LORazepam [Ativan] 1 mg PO TID PRN PRN Reason: Anxiety traZODone HCL 600 mg PO HS Triamterene/Hydrochlorothiazid [Triamterene-Hctz 37.5-25 mg Tb] 1 each PO QAM #0 tiZANidine [Zanaflex] 4 mg PO Q8HR PRN PRN Reason: Muscle Spasm Atorvastatin [Lipitor] 10 mg PO HS Levothyroxine Sodium 125 mcg PO DAILY ARIPiprazole [Abilify] 10 mg PO HS Dextroamphetamine/Amphetamine [Adderall Xr 30 mg Capsule] 30 mg PO DAILY Mupirocin 2% Oint [Bactroban 2% Oint] 1 applic NASAL BID Discharge Medication List Cyclobenzaprine [Flexeril] 10 mg PO Q8H PRN 10/01/16 [History] DULoxetine HCL [Cymbalta] 120 mg PO HS 10/01/16 [History] LORazepam [Ativan] 1 mg PO TID PRN 02/16/20 [History] traZODone HCL 600 mg PO HS 02/16/20 [History] Triamterene/Hydrochlorothiazid [Triamterene-Hctz 37.5-25 mg Tb] 1 each PO QAM #0 02/29/20 [Rx] Levothyroxine Sodium 125 mcg PO DAILY 07/11/23 [History] ARIPiprazole [Abilify] 10 mg PO HS 07/29/24 [History] Atorvastatin [Lipitor] 10 mg PO HS 07/29/24 [History] Dextroamphetamine/Amphetamine [Adderall Xr 30 mg Capsule] 30 mg PO DAILY 07/29/24 [History] Mupirocin 2% Oint [Bactroban 2% Oint] 1 applic NASAL BID 07/29/24 [History] tiZANidine [Zanaflex] 4 mg PO Q8HR PRN 07/29/24 [History] Follow up Appointment(s)/Referral(s): Jose Manuel Smith MD [Medical Doctor] - 2 Weeks Activity/Diet/Wound Care/Special Instructions: 1. Weight-bear as tolerated on your operative extremity unless instructed otherwise. Use a walker or other assistive device to ambulate. 2. Leave surgical dressing in place. If your dressing becomes saturated with blood, there is drainage, or the dressing becomes loose please contact the office. 3. It is okay to shower with your surgical dressing, but do not submerge in water (no hot tubs, bath's, swimming etc.) 4. Make sure to take her blood clot prevention medication as prescribed (aspirin, Eliquis, Xarelto, and Plavix are commonly prescribed medications for blood clot prevention) 5. While taking Adrian or Percocet for pain make sure you're taking a stool softener (Colace) and drink lots of water. 6. Keep all follow-up appointments as scheduled. You will usually be seen in 1-2 weeks following surgery. 7. Please contact the office with any questions or concerns [phone] Discharge Disposition: HOME WITH HOME HEALTH SERVICES
[2024-07-31] MEDS: FAMOTIDINE 20 MG TAB PO SCH (08:49)
[2024-07-31 08:50] VITALS: BP 100/62; PULSE 97
[2024-07-31 09:16] LABS: Basophils # (A) 0.01 X 10*3/uL (0.00-0.10); Basophils % (A) 0.1 %; Eosinophils # (A) 0.01 X 10*3/uL (0.04-0.35); Eosinophils % (A) 0.1 %; HCT 29.3 % (37.2-46.3); HGB 9.4 g/dL (12.0-15.0); Lymphocytes % (A) 11.8 %; MCH 29.7 pg (27.0-32.0); MCHC 32.1 g/dL (32.0-37.0); MCV 92.4 FL (80.0-97.0); Mean Platelet Volume 10.6 FL (9.5-12.2); Monocytes # (A) 1.06 X 10*3/uL (0.20-1.00); Monocytes % (A) 8.9 %; NRBC Per 100 WBC 0 X 10*3/uL (0.00-0.01); Neutrophils # (A) 9.33 X 10*3/uL (1.80-7.70); Neutrophils % (A) 78.7 %; Platelet Count 213 X 10*3/uL (140-440); RBC 3.17 X 10*6/uL (4.10-5.20); RDW 14.7 % (11.5-14.5); WBC 11.86 X 10*3/uL (4.50-10.00)
[2024-07-31 09:23] LABS: BUN/Creat Ratio 33.43 Ratio (12.00-20.00); Blood Urea Nitrogen 23.4 mg/dL (9.0-27.0); Glucose 122 mg/dL (70-110)
[2024-07-31 09:24] LABS: Calcium 8.2 mg/dL (8.7-10.3); Carbon Dioxide 22.3 mmol/L (21.6-31.8); Chloride 106 mmol/L (96-109); Magnesium 2.1 mg/dL (1.5-2.4); Potassium 4.1 mmol/L (3.5-5.5); Sodium 139 mmol/L (135-145)
[2024-07-31] MEDS: DEXTROAMPHETAMINE PO SCH (10:17)
[2024-07-31] MEDS: AMPHETAMINE PO SCH (10:17)
[2024-07-31 11:42] LABS: Glucose,Whole Blood 103 mg/dL (70-110)
[2024-07-31] MEDS ORDERED: MULTIVITAMINS, THERA 1 EACH TAB PO SCH (12:00)
[2024-07-31] MEDS ORDERED: TEMAZEPAM 15 MG CAP PO PRN (22:00)
--- NOTE | 2024-08-01 06:57 | P.PN ---
Subjective Progress Note Date: 07/31/24 - Reason for Consult Consult date: 07/30/24 Medical management, total right hip arthroplasty - History of Present Illness This is a pleasant 69-year-old female who was admitted under orthopedics this morning and is status post right total hip arthroplasty. Patient follows with Dr. Rivera in the outpatient setting with past medical history of diabetes, fibromyalgia, hyperlipidemia, osteoarthritis, thyroid disorder, chronic back pain, ADD/ADHD, anxiety, depression. Patient denies smoking occasionally uses alcohol and denies any other illicit drugs. Patient is a diabetic and will add sliding scale and adjust accordingly and recommend monitoring Accu-Cheks AC and at bedtime. Patient reports she did undergo presurgical clearance. Patient is evaluated postop after just arriving to the unit and is lethargic although arousable 07/31/2024 Patient is evaluated this morning and per nursing staff did well with physical therapy awaiting discharge planning per orthopedics and monitoring for pain control. Patient has not received IV pain medications and is tolerating the [place] and will be arranged per orthopedic recommendations. Patient is afebrile with no reports of chest pain or shortness of breath. Patient has been tolerat ing diet this morning with no reported nausea or vomiting. All medications have been resumed other than blood pressure medications which patient is normotensive and recommend monitoring for any hypotension. Continue monitoring blood sugars and will adjust accordingly. Awaiting hemoglobin A1c. Patient is medically stable once cleared by orthopedics. Encourage incentive spirometer use including bringing home and continuing to use. Review of systems: Constitutional: No reports of fatigue, fever, or chills Cardiovascular: No reports of chest pain or palpitations Respiratory: No reports of shortness of breath or cough GI: No reports of nausea, vomiting, or diarrhea : No reports of dysuria or retention Neurovascular: reports of some right hip discomfort All medications have been reviewed The rest of the 14-point review of systems is negative. PHYSICAL EXAMINATION: GENERAL: The patient is awake, alert and oriented x3. Well developed, well nourished. Obese HEENT: Pupils are round and equally reacting to light. EOMI. No scleral icterus. No conjunctival pallor. Normocephalic, atraumatic. No pharyngeal erythema. No thyromegaly. CARDIOVASCULAR: S1 and S2 muffled PULMONARY: Diminished breath sounds bilaterally otherwise chest is clear to auscultation, no wheezing or crackles. ABDOMEN: Soft, obese, nontender, nondistended, normoactive bowel sounds. No palpable organomegaly. MUSCULOSKELETAL: No joint swelling or deformity. EXTREMITIES: No cyanosis, clubbing, or pedal edema. Right hip surgical dressing is dry and intact with some minimal swelling noted NEUROLOGICAL: Gross neurological examination did not reveal any focal deficits. Diffusely weak SKIN: No rashes. Assessment: Status post right total hip arthroplasty History of diabetes mellitus, type II History of fibromyalgia Hyperlipidemia history History of osteoarthritis Thyroid disorder Chronic back pain History of ADD/ADHD Anxiety/depression Obesity with a BMI of 36.1 GI prophylaxis DVT prophylaxis Full code Plan: Patient was admitted under orthopedic status post right total hip arthroplasty, and reports to doing relatively well with physical therapy today awaiting to be discharged home per orthopedics Continue incentive spirometer at least 10 times every hour while awake and wean O2. Patient does not wear oxygen outpatient, on room air with no reports of shortness of breath, recommend to take home and continue using outpatient Patient was able to work with PT/OT therapy and did relatively well and will be going home DVT prophylaxis and pain management per orthopedics Continue monitoring Accu-Cheks and will continue sliding scale for now Other home medications reviewed and resumed as appropriate Patient is medically stable once cleared by orthopedics Thank you kindly for this consultation. Will continue to follow with orthopedics during hospitalization The impression and plan of care has been dictated as a scribe by Shelia Christiansen, Nurse Practitioner as directed. Dr. Yayo MD I have performed a history and examination and MDM of this patient, discussed the same with the dictator, and agree with the dictator's assessment and plan as written ,documented as a scribe. Based on total visit time, I have performed more than 50% of the visit. Objective - Vital Signs Vital signs: Vital Signs Temp 98.3 F 07/31/24 06:54 Pulse 97 07/31/24 08:49 Resp 17 07/31/24 06:54 BP 100/62 07/31/24 08:49 Pulse Ox 94 L 07/31/24 08:47 FiO2 Intake & Output 07/31/24 07/31/24 08/01/24 06:59 18:59 06:59 Intake Total 750 Balance 750 Intake: Oral 750 Other: # Voids 3 - Labs CBC & Chem 7: 07/31/24 05:32 07/31/24 05:32 Labs: Abnormal Lab Results - Last 24 Hours (Table) 07/31/24 07/31/24 Range/Units 05:32 05:32 WBC 11.86 H (4.50-10.00) X 10*3/uL RBC 3.17 L (4.10-5.20) X 10*6/uL Hgb 9.4 L (12.0-15.0) g/dL Hct 29.3 L (37.2-46.3) % RDW 14.7 H (11.5-14.5) % Immature Gran # 0.05 H (0.00-0.04) X 10*3/uL Neutrophils # 9.33 H (1.80-7.70) X 10*3/uL Monocytes # 1.06 H (0.20-1.00) X 10*3/uL Eosinophils # 0.01 L (0.04-0.35) X 10*3/uL BUN/Creatinine Ratio 33.43 H (12.00-20.00) Ratio Glucose 122 H (70-110) mg/dL Calcium 8.2 L (8.7-10.3) mg/dL
== END 2024-07-31 12:13 | disposition home health service (06) ==
LOC: OR 07:42 → 4SSUR 13:35 → OR 07-31 12:13
PROVIDERS: ATTEND Orthopaedic Surgery
DX: M16.11 Unilateral primary osteoarthritis, right hip (principal); G89.18 Other acute postprocedural pain; E11.9 Type 2 diabetes mellitus without complications; E78.5 Hyperlipidemia, unspecified; M79.7 Fibromyalgia; E03.9 Hypothyroidism, unspecified; M51.369 Other intervertebral disc degeneration, lumbar region without mention of lumbar back pain or lower extremity pain; G89.29 Other chronic pain; F41.9 Anxiety disorder, unspecified; F32.A Depression, unspecified; F90.9 Attention-deficit hyperactivity disorder, unspecified type; R32 Unspecified urinary incontinence; E66.9 Obesity, unspecified; Z68.36 Body mass index [BMI] 36.0-36.9, adult; Z79.890 Hormone replacement therapy; Z79.1 Long term (current) use of non-steroidal anti-inflammatories (NSAID); Z79.899 Other long term (current) drug therapy
CPT/HCPCS: 27130; 64447; 94760; 97161; 80048; 83735; 85025; 83036; 73501; C1776; J2250; J0330; J1100 ×2; J2710; J0690 ×2; J2405; J2003; J3010; J1171 ×2; J2795; J1885; J2704; J1596; J1308; 64473